=== PATIENT | female | born 1940 | race Caucasian/White ===

== ENCOUNTER 2023-09-02 22:25 | Inpatient (IN) | payer MEDICARE, OTHER, SELFPAY ==
[2023-09-02] VITALS (10 sets, daily range): BP systolic 124–148; BP diastolic 75–91; BMI 18.9
[2023-09-02] MEDS: NSS 500 IV (19:55)
[2023-09-02 20:18] LABS: ALT (SGPT) 21 U/L (0-35); AST (SGOT) 35 U/L (14-36); Albumin 3.7 g/dl (3.5-5.0); Alkaline Phosphatase 57 U/L (38-126); Blood Urea Nitrogen 5 mg/dl (7-17); Calcium 7.7 mg/dl (8.4-10.2); Carbon Dioxide 22 mmol/L (22-30); Chloride 75 mmol/L (98-107); Glucose 95 mg/dl (70-99); Potassium 2.4 mmol/L (3.5-5.1); Sodium 106 mmol/L (135-145); Total Protein 6.2 g/dl (6.3-8.2); eGFR > 60.00
[2023-09-02 20:41] LABS: Magnesium 1.7 mg/dl (1.6-2.3); Osmolality Serum 220 mOsm/kg (275-300)
[2023-09-02] MEDS: KCL ELIXIR 40 MEQ PO (20:49)
[2023-09-02] MEDS: MAGNESIUM SULFATE 50 IV (20:49)
[2023-09-02 20:53] LABS: % Basophils 0.1 % (0-2); % Eosinophils 0.1 % (0-6); % Immature Granulocytes 0.7 % (0-0.5); % Lymphocytes 4.3 % (20.5-51.1); % Monocytes 10.1 % (1.7-9.3); % Neutrophils 84.7 % (42.2-75.2); Absolute Immature Granulocytes 0.1 10^3/uL (0-0.05); Absolute Lymphocytes 0.4 10^3/uL (1.2-3.4); Absolute Monocytes 0.9 10^3/uL (0.1-0.6); Absolute Neutrophils 7.5 10^3/uL (1.4-6.5); Hemoglobin 12.5 g/dL (12.0-16.0); Mean Corp Hgb Conc. 36.8 g/dL (33.0-37.0); Mean Corpuscular Hgb 31.7 pg (27.0-31.0); Mean Corpuscular Volume 86.3 fL (81.0-99.0); Mean Platelet Volume 10.5 fL (7.4-10.4); Nucleated Red Blood Cells % 0 %; Platelet Count 376 10^3/uL (130-400); Red Blood Cell Count 3.94 10^6/uL (4.20-5.40); Red Cell Dist. Width 11.9 % (11.5-14.5); White Blood Cell Count 8.8 10^3/uL (4.8-10.8)
--- NOTE | 2023-09-02 21:06 | ED.GENMED ---
History of Present Illness
General
Chief Complaint: Weakness
Time Seen by Provider: 09/02/23 19:12
Travel History
Have you had any contact with someone who has COVID-19?: Unable to Answer
Do you have any symptoms of coronavirus? Fever > 100 degrees, chills, cough, shortness of breath, sore throat, loss of taste or smell, muscle aches, or headache?: Unable to Answer
History of Present Illness
History of Present Illness:
82-year-old female with history of hypertension and hyperlipidemia presents to the emergency department for evaluation of vomiting and diarrhea over the past 2 to 3 days associated with generalized weakness. Spouse and daughter noted that the
patient seemed confused and very weak today. She has been tolerating fluids throughout the majority of the day. According to she does drink in excess of 64 ounces of water each day. On arrival the patient is alert, follows commands, is
disoriented to year which is abnormal according to her family. She reports feeling fatigued. Daughter also notes that the patient's hydrochlorothiazide had previously been administered 2-3 times weekly but over the past week has been taken daily.
Past History
Past History
ED Past Medical History: Other (chronic back pain fractures)
ED Past Surgical History: Other (back surgery)
PSI?: Yes
Social History
Tobacco: Former smoker
Drug: None
Personal:
Living: with family
Employment: Retired
Review of Systems
Review of Systems
Allergies reviewed?: Yes
All Other Systems: ROS reviewed and negative except as documented in HPI and ROS
Phy Exam
Physical Exam
Physical Exam:
GEN: Thin and frail, cachectic, no acute distress
Eyes: PERRLA, EOMs intact, no scleral icterus
HENT: NCAT, oral mucosa dry
Lungs: CTAB, no wheezes, rales, rhonchi, normal chest wall excursion
Cardiac: RRR, no M/R/G, no peripheral edema. Radial pulses 2+ bilat
Abdomen: S, NT, ND, NABS, no masses or hepatosplenomegaly
Neuro: Alert, oriented to self, place, confused to year but oriented to time otherwise, moves all extremities freely but globally weak
MSK: No gross deformity or ecchymosis.
Skin: No rashes, petechiae. Normal color, no pallor or jaundice.
Psych: Calm, cooperative, proper hygiene
Course
Orders/Labs/Results
Orders:
Orders
09/02/23 19:26
Electrocardiogram (*1) Urgent
Reason for Study: QTc Monitoring
EKG- Treatment ONCE
0.9% Sodium Chloride 500 ml [Nss] 500 ml IV BOLUS
09/02/23 19:48
Complete Blood Count/With Diff Urgent
Comprehensive Metabolic Panel Urgent
Magnesium Urgent
Comment: ADD ON
Serum Osmolality Urgent
Comment: ADD ON
TSH Reflex To Free T4 Urgent
Comment: ADD ON
09/02/23 20:19
Add On- LAB Urgent
Tests Added?: serum osmolality, magnesium
09/02/23 20:35
Magnesium Sulfate 2 Gram/50 ml [Magnesium Sulfate] 2 gram in 50 ml IV NOW
Potassium Chloride 10% Elixir [KCl Elixir] 40 meq PO NOW STA
09/02/23 20:56
Potassium Chloride [KCl] 20 meq 0.9% Sodium Chloride 150 ml [Nss] 150 ml IV NOW
09/02/23 21:48
Add On- LAB Urgent
Tests Added?: TSH w/Reflex
Osmolality, Random Urine Urgent
Date Specimen was Collected: 09/02/23
Time Specimen was Collected: 21:47
Urinalysis Reflex To Culture Urgent
Date Specimen was Collected: 09/02/23
Time Specimen was Collected: 21:47
Urine Microscopic Reflex Cult Urgent
Urine Sodium Urgent
Date Specimen was Collected: 09/02/23
Time Specimen was Collected: 21:47
Urine Culture Urgent
DEYSI Source: U
Specimen Description:
Date Specimen was Collected: 09/02/23
Time Specimen was Collected: 21:47
09/02/23 21:59
CR Chest Portable - 1 View Urgent
Comment:
Reason For Exam: hyponatremia, cough
Reason Study Needs to be Portable: Unable to Transport
09/02/23 22:08
Admit/Transfer Patient As Directed
Co-Sign Provider:
Level of Care: Inpatient admission
Assign to:: ICU
Physician / Group: Higinio
Diagnosis: Hyponatremia
Reason for Hospitalization: Hyponatremia
Expected length of stay greater than two midnights?: Yes
ELOS- Estimated Length of Stay in days: 4
I certify the patient meets the requirements for IP care: Yes
09/02/23 22:09
Code Status As Directed
Resuscitation Status: Do not resuscitate
Reached after discussion with pt or family/Healthcare POA: Yes
DNR Bracelet Application ONCE
09/02/23 22:18
CT Head W/o Iv Contrast Urgent
Comment:
Reason For Exam: confusion
09/03/23 04:00
BMP [Basic Metabolic Panel] Routine
Abnormal Lab Results
09/02/23 09/02/23
19:48 21:48
RBC 3.94 L 10^6/uL
(4.20-5.40)
Hct 34.0 L %
(37.0-47.0)
MCH 31.7 H pg
(27.0-31.0)
MPV 10.5 H fL
(7.4-10.4)
Abs Immat Gran (auto) 0.1 H 10^3/uL
(0-0.05)
Absolute Neuts (auto) 7.5 H 10^3/uL
(1.4-6.5)
Absolute Lymphs (auto) 0.4 L 10^3/uL
(1.2-3.4)
Absolute Monos (auto) 0.9 H 10^3/uL
(0.1-0.6)
Immature Gran % 0.7 H %
(0-0.5)
Neutrophils % 84.7 H %
(42.2-75.2)
Lymphocytes % 4.3 L %
(20.5-51.1)
Monocytes % 10.1 H %
(1.7-9.3)
Sodium 106 L* mmol/L
(135-145)
Potassium 2.4 L* mmol/L
(3.5-5.1)
Chloride 75 L mmol/L
(98-107)
BUN 5 L mg/dl
(7-17)
Creatinine 0.4 L mg/dL
(0.6-1.0)
Serum Osmolality 220 L mOsm/kg
(275-300)
Calcium 7.7 L mg/dl
(8.4-10.2)
Total Protein 6.2 L g/dl
(6.3-8.2)
Urine Ketones 1+ A
(Negative)
Ur Occult Blood Reflex Trace A
(Negative)
Leukocyte Esterase Rfl 1+ A
(Negative)
Urine Bacteria (Reflex) Few A
(Negative)
Urine Sodium 128 H mmol/L
(30-90)
09/02/23 19:48
09/02/23 19:48
Vital Signs
Initial and Last Documented VS:
Initial Vital Signs
Temp Pulse Resp BP Pulse Ox
97.8 F 89 22 140/76 96
09/02/23 19:23 09/02/23 19:23 09/02/23 19:23 09/02/23 19:23 09/02/23 19:23
Last Documented Vital Signs
Temp Pulse Resp BP Pulse Ox
97.8 F 91 23 136/86 93
09/02/23 19:23 09/02/23 23:30 09/02/23 23:30 09/02/23 23:30 09/02/23 23:30
MDM/Problems Addressed
MDM/Problems Addressed:
Patient's hyponatremia is likely multifactorial in the setting of recent increased diuretic use, SSRI use, questionable excess free water intake/polydipsia, and recent hypovolemia in the setting of diarrhea and vomiting. She has no focal neurologic
deficits but certainly does appear confused and fatigued. Her hypokalemia also supports the hypervolemic state. She started promptly on electrolyte repletion, after discussion with nephrology it was determined that we would initiate hypertonic
saline for this patient, will admit to the intensive care unit hospitalist service for further management
*Critical Care Note
Total Time (30-74mins, 75-104mins- exclusive of procedures): 40 minutes
comment:
Critical care time: 40-minute
Critical care time was exclusive of: Separately billable procedures, treating other patients, and teaching time
Critical care was necessary to treat or prevent imminent or life-threatening deterioration of the following conditions: Hyponatremia/hypokalemia
Critical care time spent personally by me on the following activities:
[x] Review of old charts
[x] Obtaining history from patient or surrogate
[x] Ordering and review of the laboratory studies
[ ] Ordering and review of radiographic studies
[x] Ordering and performing treatments and interventions
[x] Patient patient's response to treatment
[x] Development of treatment plan with patient or surrogate
ED Attending Note
-
Portions of this chart may have been created with voice recognition software.� Occasional wrong word or��sound alike� substitutions may have occurred due to the inherent limitations of voice recognition software.
Discharge Plan
Departure
Patient Disposition: Admit
Date of Disposition: 09/02/23
Time of Disposition: 21:10
Admit to: IMU
Presentation/result/management discussed w/ accepting MD/DO: Hospitalist
Discharge Problem:
Acute hyponatremia, Acute hypokalemia
Interventions
Interventions:
*Risk Screen - Suicide Last Done: 09/02/23 19:23
*General Assessment Last Done: 09/02/23 19:23
*Neglect/Abuse Screening Last Done: 09/02/23 19:23
ED- Fall Risk Assessment Last Done: 09/02/23 19:50
*ED COVID-19 Vaccine History Last Done: 09/02/23 19:50
ED- Cardiac Assessment Last Done: 09/02/23 19:50
ED- Neurological Assessment Last Done: 09/02/23 19:50
ED- Pulmonary Assessment Last Done: 09/02/23 19:50
[2023-09-02 21:55] LABS: Osmolality Urine 392 mOsm/kg (300-900); Urine Albumin Negative (Neg - Trace); Urine Bilirubin Negative (Negative); Urine Character Clear (Clear); Urine Color Yellow; Urine Glucose Negative (Negative); Urine Ketone 1+ (Negative); Urine Leukocyte 1+ (Negative); Urine Nitrite Negative (Negative); Urine Occult Blood Trace (Negative); Urine Urobilinogen Negative (Neg - 1+)
--- NOTE | 2023-09-02 22:02 | HPS.HSE ---
Family Physician
-
Family Physician: Agustina Landis
Chief Complaint
-
Weakness and Confusion
History of Present Illness
Patient is an 82 y/o female past medical history of hypertension, anxiety and depression who presents with vomiting, weakness and increased confusion. Additional history is obtained from patient's daughter and at the bedside. Patient
started to feel ill over the weekend. Family report multiple episodes of vomiting, and some diarrhea. Patient is usually independent but today patient was so weak family had to carry her back to bed. Labs in the ED revealed significant
hyponatremia. Family notes patient drinks a lot of fluid over the coarse of the day, sometimes in excess of 64oz per day. Family also notes she previous had been taking her HCTZ twice a week, but recently bumped it up to daily due to increased
lower ext edema which has not resolved.
Medical History
Past Medical History
Past Medical History: Reports Other
Additional Past Medical History:
Essential Hypertension
Hyperlipidemia
Chronic Back Pain
Osteoporosis
GERD
Anxiety/Depression
Past Surgical History: Reports Other
Additional Past Surgical History:
Left Humerus Fracture Repair
Right Foot Fracture Repair
Bladder Sling
Social History
Tobacco: Non-smoker
Alcohol: None
Personal:
Living: With Family
Family History
Family History: Not pertinent
Allergies / Home Medications
Allergies reflects when Allergies were last updated in [facility].
Home Medications with original date entered in [facility]
Allergy/Medication List:
Allergies
Allergy/AdvReac Type Severity Reaction Status Date / Time
azithromycin [Azithromycin] Allergy Rash Verified 02/10/20 22:23
mirtazapine [From Remeron] Allergy restless Verified 02/10/20 22:23
leg
syndrome,
weight gain
Penicillins Allergy Hives Verified 02/10/20 22:23
Sulfa (Sulfonamide Allergy Rash Verified 02/10/20 22:23
Antibiotics)
Home Medications
amlodipine 5 mg tablet 5 mg PO DAILY 02/10/20
atorvastatin 20 mg tablet 20 mg PO DAILY 02/10/20
diazepam 5 mg tablet 5 mg PO Q8H 02/10/20
hydrocodone 5 mg-acetaminophen 325 mg tablet 1 tab PO Q8HPRN PRN mild pain 02/10/20
trazodone 100 mg tablet 100 mg PO HS 02/10/20
venlafaxine 150 mg capsule,extended release 24 hr (Effexor XR) 150 mg PO DAILY 02/10/20
acetaminophen 325 mg tablet 325 mg PO DAILY 09/02/23
cholecalciferol (vitamin D3) 1,250 mcg (50,000 unit) capsule 1,250 mcg PO USEASDIRECTD 09/02/23
hydrochlorothiazide 25 mg tablet 25 mg PO DAILY 09/02/23
lactulose 10 gram/15 mL oral solution 15 ml PO DAILY 09/02/23
mometasone 0.1 % topical cream 1 applic topical DAILY 09/02/23
pantoprazole 40 mg tablet,delayed release 40 mg PO DAILY 09/02/23
senna leaf extract 8.7 mg chewable tablet (Senokot) 8.7 mg PO DAILY 09/02/23
Review of Systems
-
Unable to obtain full review of systems at this time due to: Acuity
Constitutional: Denies Fever or Chills
Respiratory: Reports Cough
Cardiac: Denies Chest Pain or Palpitations
Abdomen/GI: Reports Vomiting and Diarrhea
Physical Exam
Vital Signs
Vital Signs
Temp Pulse Resp BP Pulse Ox
97.8 F 88 20 125/80 95
09/02/23 19:23 09/02/23 20:00 09/02/23 20:00 09/02/23 20:00 09/02/23 20:00
Physical Exam
General: Comfortable, Conversant, Appears Chronically Ill and Cachectic
HEENT: NormoCephalic, Anicteric and Atraumatic
Respiratory: Non Labored Respirations and Other (Coarse breath sounds throughout)
Cardiac: S1/S2 and Regular Rhythm
GI: Soft and Non Tender
Rectal: Deferred by Provider
Musculoskeletal: No Clubbing, No Cyanosis and No Edema
Skin: Warm and Dry
Neuro: Awake, Alert and Oriented (Oriented to self)
Psych: Calm
Laboratory Results
-
09/02/23 19:48
09/02/23 19:48
Laboratory Results
Total Bilirubin 1.0 mg/dl (0.2-1.3) 09/02/23 19:48
AST 35 U/L (14-36) 09/02/23 19:48
ALT 21 U/L (0-35) 09/02/23 19:48
Alkaline Phosphatase 57 U/L (38-126) 09/02/23 19:48
Data Reviewed
-
Lab Data: Labs Reviewed by me
Impression/Plan
-
Severe Symptomatic Hyponatremia
-Admit to ICU
-Consult Nephrology
-Patient received 3% NaCl 50mL bolus in ED
-Recheck sodium 4hr post bolus - If Na remains less than 110 start 3% Na infusion
-Monitor sodium level q4h
-Continue fluid restriction
Hypokalemia
-Replace potassium PO and IV
-Recheck potassium tonight and in AM
Essential Hypertension
-Hold HCTZ due to hyponatremia
-Hold amlodipine due to complaints of lower ext edema
-Monitor blood pressure
Anxiety/Depression
-Hold trazodone and Effexor as causes of hyponatremia
-Hold diazepam due to confusion
GERD
-Continue Protonix
Severe Protein Calorie Malnutrition
-Consult Dietary
DVT proph: Lovenox
Code Status: DNR confirmed with family at bedside at time of admission
[2023-09-02 22:06] LABS: Urine Sodium 128 mmol/L (30-90)
[2023-09-02 22:13] LABS: Urine Bacteria Few (Negative); Urine Red Blood Cell 0-2 /HPF (0-2); Urine Squamous Cell >30 /LPF (Few)
[2023-09-02 22:53] LABS: TSH Reflex To Free T4 0.77 uIU/ml (0.47-4.68)
--- NOTE | 2023-09-02 23:12 | W.PN.UPDATE ---
Update Note
Progress Note Update
Patient seen and examined independently. Agree with findings and plan as set forth in today's H&P by Mary Black PA-C.
Patient is an 82y F with PMH significant for hypertension and depression who presents to ED for evaluation of weakness and confusion. History obtained from patient and her family at the bedside. Patient is normally oriented and very active.
Over the past few days especially she has been weak, fatigued and increasingly confused. They stated that patient was not following commands or answering questions earlier today. They attempted to assist her to the bathroom and family states that
she went 'stiff as a board'. No prior h/o similar symptoms. Patient does have a history of chronic but very mild hyponatremia. She recently increased her HCTZ dosing from twice weekly to once daily. She apparently takes this for LE swelling.
Ass:
Severe Symptomatic Hyponatremia
Hypokalemia
Benign Hypertension
Severe Protein-Calorie Malnutrition
Anxiety / Depression
GERD
Abnormal Lung Sounds
Plan:
Admit to ICU for further evaluation and treatment.
Patient with Na = 106 and abnormally high serum sodium.
On multiple medications which can contribute to hyponatremia - including recently increased HCTZ.
Hold all potential culprit medications for now.
3% saline bolus now with repeat labs at 1:30 AM.
+/- 3% infusion thereafter if necessary.
Nephrology input appreciated / formal consult placed.
Scrub Tech evaluation.
Follow for clinical improvement coincident with gradual Na correction.
Patient will require further evaluation including CXR, CT head, TFTs, cortisol, etc.
Given severe cachexia and hyponatremia - would be concerned about possible underlying malignancy.
Once Na level is improved, would consider further evaluation, CT C/A/P, etc.
[2023-09-02] MEDS: KCL 160 MEQ IV (23:46)
--- NOTE | 2023-09-02 23:54 | EDRN ---
Pt contact - family: medical decision maker:
daughter Tisha [phone]
can contact at any time as needed.
[2023-09-03] VITALS (23 sets, daily range): BP systolic 123–153; BP diastolic 69–99; BMI 15.9
[2023-09-03 00:13] LABS: COVID-19 Antigen Negative (Negative)
--- NOTE | 2023-09-03 00:44 | PTCARENOTE ---
Patient received from ED, AAOX1-2, forgetful to time, pleasant. BYERS. NSR on monitor, afebrile, blood pressure as documented. Palpable oulses throughout, no edema noted. Lungs diminished, pulse ox 98% on room air. Abdomen soft positive bowel
sounds. Pure wick applied. Skin intact. #18 g in right forearm with K rider infusing. CHG bath given.
[2023-09-03] MEDS: SODIUM CHLORIDE 3% 50 ML IV (01:08)
[2023-09-03 04:25] LABS: INR 0.99; PT 13.1 Sec (11.4-14.6)
[2023-09-03 04:27] LABS: APTT 42.2 Sec (23.4-35.0)
[2023-09-03 04:31] LABS: Hematocrit 33.2 % (37.0-47.0); Hemoglobin 12.3 g/dL (12.0-16.0); Mean Corpuscular Hgb 31.5 pg (27.0-31.0); Mean Corpuscular Volume 84.9 fL (81.0-99.0); Mean Platelet Volume 9.6 fL (7.4-10.4); Platelet Count 373 10^3/uL (130-400); Red Blood Cell Count 3.91 10^6/uL (4.20-5.40); Red Cell Dist. Width 11.8 % (11.5-14.5); White Blood Cell Count 7.5 10^3/uL (4.8-10.8)
[2023-09-03 04:52] LABS: Blood Urea Nitrogen 4 mg/dl (7-17); Calcium 7.6 mg/dl (8.4-10.2); Carbon Dioxide 17 mmol/L (22-30); Chloride 88 mmol/L (98-107); Estimated Creatinine Clearance 52 ml/min; Glucose 84 mg/dl (70-99); Magnesium 2.4 mg/dl (1.6-2.3); Potassium 3.3 mmol/L (3.5-5.1); Sodium 112 mmol/L (135-145); eGFR > 60.00
[2023-09-03 05:10] LABS: Cortisol, Random 23.4 ug/dl
--- NOTE | 2023-09-03 05:56 | PTCARENOTE ---
labs noted, orders received
[2023-09-03] MEDS: KCL ELIXIR 40 MEQ PO (06:28)
[2023-09-03] MEDS: PROTONIX 40 MG PO (07:57)
--- NOTE | 2023-09-03 09:00 | PTCARENOTE ---
Rec'd pt at 0745 awake resting in bed . Overall is more awake and for the most part oriented. Does get sl forgetful - pt has her nails done and stated it was for her granddaughters weddding but couldn't remember if the wedding had occured or not (it
hadn't its on Friday), however knew it was August and that she was in [place]. Denies dizziness or headache. Denies pain. Skin is pale pink wm and dry. Respirs are shallow but non-labored on RA with sats of 98%. BS are decreased at the bases. Occasional
moist non=prod cough. Monitor SR. + pulses.No edema. Denies chest pain. VS as documented. Abd is soft with hypoactive BS. Denies nausea. Purewick on place - encouraged pt to try to void. Capped int intact R FA site wnl. Repositioned. Mouth care
given. Partial CHG bath done. Awaiting breakfast. Remade aware of fluid restriction of 1200 mls as pt states she is a big water drinker at home. Call cisneros in reach. Plan of care reviewed with pt.
--- NOTE | 2023-09-03 09:24 | W.CON.NEPH ---
Consultation
-
Date/Time Consultation Requested: 09/02/232139
Date/Time Consultation Performed: 09/03/23929
Requesting Provider: Ricki Carter
Performing Provider: Ayde Schuler
Reason for Consultation: hypoantremia
Medical History
-
Chief Complaint: Weakness and cofusion
History of Present Illness:
82y F with PMH significant for hypertension on Amlodipine, and depression on effexor, diazepam, on PPI for GERD who presents to ED for evaluation of weakness and confusion on 09/01. Pt is poor historian and most of the history from staff and chart.
Patient is normally oriented and very active. Over the past few days especially she has been weak, fatigued and increasingly confused and not following commands or answering questions. Family attempted to assist her to the bathroom and family
states that she went 'stiff as a board'. Patient does have a history of chronic mild hyponatremia 130 in 2019. She recently increased her HCTZ dosing from twice weekly to once daily for LE swelling. On arrival to ER sodium was 106, s/p 50cc bolus
of hypertonic fluids and sodium recheck this am was 112. Pt reports feeling well but not back to baseline. Offers no cp or sob or abd pain. No n/v/d. She reports losing wt lately. Denies any dysuria.Pt does admits of drinking lot of fluids.
Past Medical History
Essential Hypertension
Hyperlipidemia
Chronic Back Pain
Osteoporosis
GERD
Anxiety/Depression
Past Surgical History: Other (Left Humerus Fracture Repair Right Foot Fracture Repair Bladder Sling)
Social History
Tobacco: Non-Smoker
Alcohol: None
Personal:
Living: With Family
Family History
Family History: Not Pertinent
Allergies / Home Medications
Allergy/AdvReac Type Severity Reaction Status Date / Time
azithromycin [Azithromycin] Allergy Rash Verified 02/10/20 22:23
mirtazapine [From Remeron] Allergy restless Verified 02/10/20 22:23
leg
syndrome,
weight gain
Penicillins Allergy Hives Verified 02/10/20 22:23
Sulfa (Sulfonamide Allergy Rash Verified 02/10/20 22:23
Antibiotics)
�Medication �Instructions �Recorded �Confirmed �Type
amlodipine 5 mg tablet 5 mg PO DAILY 02/10/20 09/02/23 History
atorvastatin 20 mg tablet 20 mg PO DAILY 02/10/20 09/02/23 History
diazepam 5 mg tablet 5 mg PO Q8H 02/10/20 09/02/23 History
hydrocodone 5 mg-acetaminophen 325 1 tab PO Q8HPRN PRN mild pain 02/10/20 09/02/23 History
mg tablet
trazodone 100 mg tablet 100 mg PO HS 02/10/20 09/02/23 History
venlafaxine 150 mg 150 mg PO DAILY 02/10/20 09/02/23 History
capsule,extended release 24 hr
(Effexor XR)
acetaminophen 325 mg tablet 325 mg PO DAILY 09/02/23 09/02/23 History
cholecalciferol (vitamin D3) 1,250 1,250 mcg PO USEASDIRECTD 09/02/23 09/02/23 History
mcg (50,000 unit) capsule
hydrochlorothiazide 25 mg tablet 25 mg PO DAILY 09/02/23 09/02/23 History
lactulose 10 gram/15 mL oral 15 ml PO DAILY 09/02/23 09/02/23 History
solution
mometasone 0.1 % topical cream 1 applic topical DAILY 09/02/23 09/02/23 History
pantoprazole 40 mg tablet,delayed 40 mg PO DAILY 09/02/23 09/02/23 History
release
senna leaf extract 8.7 mg chewable 8.7 mg PO DAILY 09/02/23 09/02/23 History
tablet (Senokot)
Review of Systems
-
all complete 12 point ROS have been inquired and found negative other than state din HPI
Physical Exam
Vital Signs
Vital Signs
Temp Pulse Resp BP Pulse Ox
98.9 F 86 24 139/76 95
09/03/23 07:45 09/03/23 09:00 09/03/23 09:00 09/03/23 09:00 09/03/23 09:00
Lab Results
WBC 7.5 10^3/uL (4.8-10.8) 09/03/23 03:59
RBC 3.91 10^6/uL (4.20-5.40) L 09/03/23 03:59
Hgb 12.3 g/dL (12.0-16.0) 09/03/23 03:59
Hct 33.2 % (37.0-47.0) L 09/03/23 03:59
Plt Count 373 10^3/uL (130-400) 09/03/23 03:59
Sodium 112 mmol/L (135-145) L* 09/03/23 03:59
Sodium Cancelled 09/03/23 03:59
Potassium 3.3 mmol/L (3.5-5.1) L D 09/03/23 03:59
Potassium Cancelled 09/03/23 03:59
Chloride 88 mmol/L (98-107) L 09/03/23 03:59
Chloride Cancelled 09/03/23 03:59
Carbon Dioxide 17 mmol/L (22-30) L 09/03/23 03:59
Carbon Dioxide Cancelled 09/03/23 03:59
BUN 4 mg/dl (7-17) L 09/03/23 03:59
BUN Cancelled 09/03/23 03:59
Creatinine 0.3 mg/dL (0.6-1.0) L 09/03/23 03:59
Creatinine Cancelled 09/03/23 03:59
eGFR > 60.00 09/03/23 03:59
eGFR Cancelled 09/03/23 03:59
Glucose 84 mg/dl (70-99) 04/10/24 03:59
Glucose Cancelled 09/03/23 03:59
Calcium 7.6 mg/dl (8.4-10.2) L 09/03/23 03:59
Calcium Cancelled 09/03/23 03:59
Albumin 3.7 g/dl (3.5-5.0) 09/02/23 19:48
U osmo 392, U na [address] head:
IMPRESSION:
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
There is moderate diffuse cortical atrophy with moderate nonspecific white matter changes as described above.
CXR:
IMPRESSION:
No acute disease of the chest.
Mild cardiomegaly. Stable.
Findings suggesting a moderate hiatal hernia. Stable
Physical Exam
General: Awake, Alert, Oriented, No Distress and Nontoxic
HEENT: EOMI and Anicteric
Respiratory: Clear
Cardiac: S1/S2, Regular Rate/Rhythm and No Edema
Abdomen: Soft, Nontender and Nondistended
Musculoskeletal: No Cyanosis and No Edema
Skin: No Rash
Neuro: Nonfocal/Grossly Intact
Psych: Mood/afflect pleasant, Appropriate and Other (slow to respons and confusion+)
Assessment/Plan
-
IMP:
Severe Symptomatic Hyponatremia
Hypokalemia
No gap met acidosis
Essential Hypertension
Anxiety/Depression
GERD/HH
Severe Protein Calorie Malnutrition
Plan:
A/w gen weakness and confusion sodium noted 106
severe [id number] ADH state with U osmo 392, high U na post 3%
worsened with HCTZ use, and possible low solute with high free water intake
note she is on SNRI and trazodone -currently on hold
goal of correction 6-8meq/day, high risk of CPM
current sodium at 113-start gentle hypotonic fluid to avoid over correction
check Q4hr sodiums, goal of sodium tonight is 112. by morning 116.
TSH and cortisol is normal
BP stable with holding meds
monitor UOP, recheck U osmo today
maintain FR 40ounces/day
replace k
encourage solute intake
mild met acidosis-monitor, check bladder scan
d/w nursing and ICU
Data Reviewed
-
Radiology: Report Reviewed by me
Labs: Labs Reviewed by me and Discussed with Nurse
--- NOTE | 2023-09-03 10:30 | PTCARENOTE ---
Fair to poor appetite for breakfast. No difficulty noted with swallowing although pt states at times she has issues with it at home. Admitted to about at 10 lb weight loss recently as she states she does not have much of an appetite. Pt voided via
purewick but was incont of a saturated amt of urine around the purewick. Bladder scanned for residual of 276 mls. Carolee care given and pt then assisted oob to the BSC- did not need to void futher. Then to the recliner chair. Gait is weak but easily
able to bear wt and did not c/o dizzness. Currently oob in the chair. Call cisneros in reach. Labs sent as ordered
--- NOTE | 2023-09-03 10:38 | CON.INTV ---
Documented by User: Long Snyder MD, Resident 09/03/23 12:10
Consultation
Consultation Request
Date/Time Consultation Requested: 09/03/2023
Date/Time Consultation Performed: 09/03/2023
Reason for Consultation: Confusion and weakness
Medical History
-
Chief Complaint: Confusion and weakness
History of Present Illness:
History obtained from patient and clinical notes. Patient is a 82-year-old female with past medical history of hypertension who presented to the ED on 09/03/2023 with with nausea, vomiting, diarrhea, weakness, and confusion for the past 2 to 3 days.
Family reports that patient's HCTZ was increased from 2-3 times a week to daily due to concerns for bilateral lower extremity edema. Family also noted that patient drinks in excess of 64 ounces of water every day. On presentation, patient was found
to be oriented to only self with sodium level of 106, potassium level of 2.4 and urine sodium of 128. Her head CT and chest x-ray were both unremarkable. She was started on senna and her HCTZ, trazodone, Effexor, diazepam, and amlodipine were held.
Patient was treated with 50 mL 3% sodium chloride bolus. Her electrolytes were repleted with magnesium sulfate and potassium chloride with one-time 150 mL of normal saline and was admitted to the ICU for further evaluation.
Overnight, her sodium level improved to 112 and potassium improved to 3.3. Today, patient is currently oriented x 3 and tolerating oral feeding. her electrolytes are improving with sodium level of 113 and potassium is 3.9.
PMH:Essential Hypertension, Hyperlipidemia, Chronic Back Pain, Osteoporosis, GERD, Anxiety/Depression.
Past Medical History
Past Medical History: GERD, HTN and Hypercholesterolemia
Past Surgical History: Gynecological (Bladder sling) and Orthopedic (Right foot fracture repair and left humeral fracture repair)
Social History
Tobacco: Non-smoker
Alcohol: None
Drug: None
Personal:
Living: With Family
Family History
Family History: Reviewed & Not Pertinent
Allergies / Home Medications
Allergies
Allergy/AdvReac Type Severity Reaction Status Date / Time
azithromycin [Azithromycin] Allergy Rash Verified 02/10/20 22:23
mirtazapine [From Remeron] Allergy restless Verified 02/10/20 22:23
leg
syndrome,
weight gain
Penicillins Allergy Hives Verified 02/10/20 22:23
Sulfa (Sulfonamide Allergy Rash Verified 02/10/20 22:23
Antibiotics)
Home Medications
�Medication �Instructions �Recorded �Confirmed �Last Taken �Type
amlodipine 5 mg tablet 5 mg PO DAILY 02/10/20 09/02/23 Unknown History
atorvastatin 20 mg tablet 20 mg PO DAILY 02/10/20 09/02/23 Unknown History
diazepam 5 mg tablet 5 mg PO Q8H 02/10/20 09/02/23 Unknown History
hydrocodone 5 mg-acetaminophen 325 1 tab PO Q8HPRN PRN mild pain 02/10/20 09/02/23 Unknown History
mg tablet
trazodone 100 mg tablet 100 mg PO HS 02/10/20 09/02/23 Unknown History
venlafaxine 150 mg 150 mg PO DAILY 02/10/20 09/02/23 Unknown History
capsule,extended release 24 hr
(Effexor XR)
acetaminophen 325 mg tablet 325 mg PO DAILY 09/02/23 09/02/23 Unknown History
cholecalciferol (vitamin D3) 1,250 1,250 mcg PO USEASDIRECTD 09/02/23 09/02/23 Unknown History
mcg (50,000 unit) capsule
hydrochlorothiazide 25 mg tablet 25 mg PO DAILY 09/02/23 09/02/23 Unknown History
lactulose 10 gram/15 mL oral 15 ml PO DAILY 09/02/23 09/02/23 Unknown History
solution
mometasone 0.1 % topical cream 1 applic topical DAILY 09/02/23 09/02/23 Unknown History
pantoprazole 40 mg tablet,delayed 40 mg PO DAILY 09/02/23 09/02/23 Unknown History
release
senna leaf extract 8.7 mg chewable 8.7 mg PO DAILY 09/02/23 09/02/23 Unknown History
tablet (Senokot)
Review of Systems
-
History Source: Patient and Transfer Record
All other systems: Negative unless noted
Constitutional: Other (Appears cachectic, denies fever and chills.)
EENT: No Symptoms
Respiratory: No Symptoms and Other (Denies difficulty breathing.)
Cardiac: No Symptoms and Other (Denies chest pain, shortness of breath, and palpitations)
Abdomen/GI: No Symptoms and Other (Currently denies nausea, vomiting, and diarrhea. Denies abdominal pain.)
: No Symptoms
Musculoskeletal: No Symptoms
Skin: No Symptoms and Other (No rash)
Neuro: No Symptoms, Weakness and Other (Oriented x 3, endorses some weakness but denies headache, dizziness, and numbness.)
Endocrine: Polydidsia
Hematologic/Lymphatic: No Symptoms
Vitals / Labs / Diagnostic Testing
Vital Signs
Temp Pulse Resp BP Pulse Ox
98.9 F 86 24 139/76 95
09/03/23 07:45 09/03/23 09:00 09/03/23 09:00 09/03/23 09:00 09/03/23 09:00
Lab Data
09/03/23 03:59
Laboratory Results
09/03/23
03:59
PT 13.1
INR 0.99
APTT 42.2 H
Diagnostic Testing:
Physical Exam
-
HEENT: Normocephalic and Anicteric
Cardiovascular: S1/S2
Respiratory: Clear
GI: Soft, Non Distended, Non Tender and Normal Bowel Sounds
Neurology: Awake, Alert and AO x 3
Skin: Warm, Dry and Good Color
General: Comfortable and Poor Appetite
Assessment
-
Patient is a 82-year-old female with past medical history of hypertension who presented to the ED with nausea, vomiting, diarrhea, weakness, and confusion for the past 2 to 3 days. Patient's HCTZ was recently increased from 2-3 times weekly dose to
a daily dose. On presentation patient was hypokalemic and hyponatremic. Potassium was repleted and patient received 50 mL 3% sodium chloride bolus and was admitted to ICU for further evaluations.
ASSESSMENT:
Presentation with weakness and confusion.
Severe hyponatremia.
Hypokalemia.
CONDITIONS PRIOR TO ADMISSION:
Essential Hypertension
Hyperlipidemia
Chronic Back Pain
Osteoporosis
GERD
Anxiety/Depression
Impression/Plan:
Presentation with weakness and confusion.
-Weakness has improved and patient is currently oriented x 3.
-Symptoms most likely due to electrolyte abnormalities given her acute vomiting and diarrhea and recent increase in hydrochlorothiazide dose. This may also be compounded with her history of excess free water intake.
-Continue electrolyte repletion and monitoring serum sodium level with improved potassium level.
-Continue free water restriction.
-Hold offending drugs�HCTZ, amlodipine, trazodone, Effexor.
-Restart home diazepam dose to prevent benzodiazepine withdrawal.
-Continue monitoring for clinical improvement for the next 24 hours with plans to transfer if she continues to be stable.
Severe hyponatremia/hypokalemia.
-Presentation with symptomatic hyponatremia and elevated urine sodium level most likely due to increased diuretic use and/polydipsia.
-Serums sodium level improving with 50 mL 3% NaCl boluses and normal saline IVF received in the ED.
-Continue free water restriction.
-BMP every 4 hours to monitor electrolytes.
-Replete with normal saline as needed.
Hypokalemia.
-Serum potassium level improved with KCl administration.
-Continue to monitor and replete potassium as needed.
-BMP every 4 hours to monitor electrolytes.
Essential Hypertension.
-Hold HCTZ for now due to hyponatremia.
-Hold amlodipine and reassess at discharge as this could potentially cause peripheral edema.
-Monitor blood pressure
Anxiety/Depression.
-Hold trazodone and Effexor due to symptomatic hyponatremia.
-Continue diazepam to prevent benzodiazepine withdrawal in a chronic user.
GERD.
-Continue Protonix.
Severe Protein Calorie Malnutrition
-Consult Dietary
DVT PPx: Lovenox
Code Status: DNR confirmed with family at bedside at time of admission

Documented by User: Jerome Sheldon MD 09/03/23 16:39
Assessment
-
Patient is a 82-year-old female with past medical history of hypertension who presented to the ED with nausea, vomiting, diarrhea, weakness, and confusion for the past 2 to 3 days. Patient's HCTZ was recently increased from 2-3 times weekly dose to
a daily dose. On presentation patient was hypokalemic and hyponatremic. Potassium was repleted and patient received 50 mL 3% sodium chloride bolus and was admitted to ICU for further evaluations.
ASSESSMENT:
Presentation with weakness and confusion.
Severe hyponatremia.
Hypokalemia.
CONDITIONS PRIOR TO ADMISSION:
Essential Hypertension
Hyperlipidemia
Chronic Back Pain
Osteoporosis
GERD
Anxiety/Depression
Impression/Plan:
Presentation with weakness and confusion.
-Weakness has improved and patient is currently oriented x 3.
-Symptoms most likely due to electrolyte abnormalities given her acute vomiting and diarrhea and recent increase in hydrochlorothiazide dose. This may also be compounded with her history of excess free water intake.
-Continue electrolyte repletion and monitoring serum sodium level with improved potassium level.
-Continue free water restriction.
-Hold offending drugs�HCTZ, amlodipine, trazodone, Effexor.
-Restart home diazepam dose to prevent benzodiazepine withdrawal.
-Continue monitoring for clinical improvement for the next 24 hours with plans to transfer if she continues to be stable.
Severe hyponatremia/hypokalemia.
-Presentation with symptomatic hyponatremia and elevated urine sodium level most likely due to increased diuretic use and/polydipsia.
-Serums sodium level improving with 50 mL 3% NaCl boluses and normal saline IVF received in the ED.
-Continue free water restriction.
-BMP every 4 hours to monitor electrolytes.
-Replete with normal saline as needed.
-Nephrology following
Hypokalemia.
-Serum potassium level improved with KCl administration.
-Continue to monitor and replete potassium as needed.
-BMP every 4 hours to monitor electrolytes.
Essential Hypertension.
-Hold HCTZ for now due to hyponatremia.
-Hold amlodipine and reassess at discharge as this could potentially cause peripheral edema.
-Monitor blood pressure
Anxiety/Depression.
-Hold trazodone and Effexor due to symptomatic hyponatremia.
-Continue diazepam to prevent benzodiazepine withdrawal in a chronic user.
GERD.
-Continue Protonix.
Severe Protein Calorie Malnutrition
-Consult Dietary
DVT PPx: Lovenox
Code Status: DNR confirmed with family at bedside at time of admission

The above was reviewed at length. Agree with above plan and recommendations. Patient seen and examined independently and with the resident. Patient is a pleasant 82-year-old female who recently saw her primary. She has lost about 20 pounds over
the last few months. She has been complaining of increasing lower extremity swelling, amlodipine was discontinued, hydrochlorothiazide increased. Patient admits to taking at least 64 ounces of water a day. Patient had episodes of emesis,
diarrhea, fatigue. Upon arrival to [facility], Sodium level 106, afebrile, pulse 89, breathing at 22, blood pressure 140/76, 96%. Patient was admitted to ICU for further management of hyponatremia. Was given 1 dose of 3% saline.
Presently patient is feeling much better. She is asking when she can go home. She has a wedding to attend the evening of 09/05/2023
Past medical history, social history, family history, review of system as below
History also obtained from at bedside
Physical exam salient features include cachexia, kyphoscoliosis
She has mild crackles at the base, no murmurs, no edema. Muscle strength is 5 out of 5
She has some mild right flank discomfort, no rebound or guarding
Data reviewed
A/P
At this time, sodium level appears to be 112
Likely combination of increasing hydrochlorothiazide dose and polydipsia
D5W to be started to slow rise of sodium levels.
Nephrology following
Will hold potential agents contributing to hyponatremia
Okay to use trazodone tonight per discussion with nephrology. Hold hydrochlorothiazide, effexor
Continue with every 4hr BMP
Significant weight loss is noted. Patient is lifelong non-smoker. Chest x-ray without acute findings.
Will defer further workup for weight loss to primary physician as outpatient
Dietary evaluation, optimize nutrition
Ensure supplements, light weights at home to develop muscle mass
Reviewed with critical care nursing, pharmacy, respiratory care
Reviewed with at bedside
TCCT 31 min
[2023-09-03 10:54] LABS: Blood Urea Nitrogen 5 mg/dl (7-17); Calcium 7.9 mg/dl (8.4-10.2); Carbon Dioxide 18 mmol/L (22-30); Chloride 86 mmol/L (98-107); Estimated Creatinine Clearance 44 ml/min; Glucose 103 mg/dl (70-99); Potassium 3.9 mmol/L (3.5-5.1); Sodium 113 mmol/L (135-145); eGFR > 60.00
[2023-09-03] MEDS: VALIUM 5 MG PO ×2 (10:58→20:37)
--- NOTE | 2023-09-03 11:20 | PTCARENOTE ---
Dr. Vallejo updated on labs. Pt remains sitting oob. in to see pt and updated. Pt is normally on Valium for anxiety - was asking for it stating she is normally an anxious person. Given her Valium as ordered.
[2023-09-03 12:00] LABS: Osmolality Urine 295 mOsm/kg (300-900)
--- NOTE | 2023-09-03 12:06 | W.PN.HOSP.TC ---
Today's Communication/Plan
-
d5w
trend bmp
restart valium
hold hctz and mood stabilizer for today
Assessment / Plan
Assessment / Plan
Severe Symptomatic Hyponatremia
-Patient received 3% NaCl 50mL bolus in ED
-Recheck sodium 4hr
-Monitor sodium level q4h
-Continue fluid restriction
-Goal sodium seems 112 per nephro.
-last Na at 113 and started on D5. Will defer to nephrology
Hypokalemia
-replete and monitor
Essential Hypertension
-Hold HCTZ due to hyponatremia
-Hold amlodipine due to complaints of lower ext edema
-Monitor blood pressure
Anxiety/Depression
-Hold trazodone and Effexor as causes of hyponatremia
-restart diazepam
GERD
-Continue Protonix
Severe Protein Calorie Malnutrition
-Consult Dietary likely subacute vs. chronic
DVT proph: Lovenox
Code Status: DNR confirmed with family at bedside at time of admission
Anticipated Discharge: > 48 hours
Subjective/Interval History
-
Date of Service: September 03, 2023
Drinks excessive amount of water at home
Also was started on HCTZ was dose was increased to daily
States of decreased oral p.o. dietary intake
States of losing weight
Objective Data
-
Labs:
Laboratory Results
09/03/23 09/03/23 09/03/23
03:59 03:59 03:59
WBC 7.5
Hgb 12.3
Hct 33.2 L
Plt Count 373
PT 13.1
INR 0.99
APTT 42.2 H
Sodium Cancelled 112 L*
Potassium Cancelled 3.3 L D
Chloride Cancelled
Carbon Dioxide
BUN
Creatinine
Glucose
Calcium
09/03/23 09/03/23 09/03/23
03:59 03:59 03:59
WBC
Hgb
Hct
Plt Count
PT
INR
APTT
Sodium
Potassium
Chloride 88 L
Carbon Dioxide Cancelled 17 L
BUN Cancelled 4 L
Creatinine Cancelled
Glucose
Calcium
09/03/23 09/03/23 09/03/23
03:59 03:59 03:59
WBC
Hgb
Hct
Plt Count
PT
INR
APTT
Sodium
Potassium
Chloride
Carbon Dioxide
BUN
Creatinine 0.3 L
Glucose Cancelled 84
Calcium Cancelled 7.6 L
09/03/23 09/03/23 09/03/23
10:01 13:24 17:24
WBC
Hgb
Hct
Plt Count
PT
INR
APTT
Sodium 113 L* Pending Pending
Potassium 3.9 Pending Pending
Chloride 86 L Pending Pending
Carbon Dioxide 18 L Pending Pending
BUN 5 L Pending Pending
Creatinine 0.4 L Pending Pending
Glucose 103 H Pending Pending
Calcium 7.9 L Pending Pending
09/03/23
21:24
WBC
Hgb
Hct
Plt Count
PT
INR
APTT
Sodium Pending
Potassium Pending
Chloride Pending
Carbon Dioxide Pending
BUN Pending
Creatinine Pending
Glucose Pending
Calcium Pending
Vital Signs:
Vital Signs
Temp Pulse Resp BP Pulse Ox
98.9 F 86 24 139/76 95
09/03/23 07:45 09/03/23 09:00 09/03/23 09:00 09/03/23 09:00 09/03/23 09:00
I&O
09/02/23 09/03/23 09/04/23
06:59 06:59 06:59
Intake Total 50 / 50 250 / 250
Output Total 100 / 100
Balance 50 / 50 150 / 150
Physical Exam
-
General: Well Developed and Cachectic
HEENT: Normocephalic, Atraumatic and Moist Mucous Membranes
Respiratory: Clear to Auscultation
Cardiac: Regular Rhythm and S1/S2; Negative Murmur, Rub or Gallop
GI: Soft, Nontender, Nondistended and Normal Bowel Sounds; Negative Organomegaly
Rectal: Deferred by Provider
Musculoskeletal: No Clubbing, No Cyanosis and No Edema
Skin: Negative Rash
Neuro: Awake, No Motor Deficits and Nonfocal/Grossly Intact
Data Reviewed
-
Total Time Spent with Patient (in minutes): 55
[2023-09-03] MEDS: D5W 1000 IV (12:24)
--- NOTE | 2023-09-03 12:45 | PTCARENOTE ---
Remains resting oob. On BSC for yellow urine. Urine osmolarity sent earlier per MD order. Per Md order D5W hung at 50 ml/hr via R forearm IV site. Pt encouraged to order lunch- difficult to figure out what pt wants as she either isn't hungry for
much, doesn't care for particular foods, or isn't allowed them on her diet. Call cisneros in reach.
--- NOTE | 2023-09-03 13:33 | CM ---
CM following re: discharge planning.
Discussed in rounds, reviewed pt's chart, met with pt and pt's at bedside.
Pt is an 82 year old female, admitted with primary dx of Hyponatremia.
Pt reports she lives with and a daughter in a 2SH, no steps to enter, has 3 supportive children. Pt described herself as independent in all areas [place], ambulates independently with a cane, family helps as needed. No VN or SNF history.
PT and OT will evaluate the pt to determine a level of care at discharge.
PCP: Ander Calles
Pharmacy: [facility].
D/C plan: home with anticipated VN services. to transport at discharge.
CM will follow with discharge plan updates as hospitalization progresses
--- NOTE | 2023-09-03 14:00 | PTCARENOTE ---
Ate a few spoonfuls of soup for lunch - about 25% overall. Labs sent. Voided on the commode then assisted back to bed. Gait again is weak but pt is easily able to bear wt. at bedside. [employer]ist in to see pt and spoke with pt and
about diet and different choices to try to meet protein and calorie needs. Skin care given. Protective foam placed on mid/upper back daniel prominences. Call cisneros in reach.
[2023-09-03 14:27] LABS: Blood Urea Nitrogen 5 mg/dl (7-17); Carbon Dioxide 18 mmol/L (22-30); Chloride 86 mmol/L (98-107); Estimated Creatinine Clearance 44 ml/min; Glucose 118 mg/dl (70-99); Potassium 3.6 mmol/L (3.5-5.1); Sodium 113 mmol/L (135-145); eGFR > 60.00
[2023-09-03 14:51] LABS: Phosphorus 1.4 mg/dl (2.5-4.5)
--- NOTE | 2023-09-03 16:30 | PTCARENOTE ---
Remains resting. Visiting with . No complaints. Incont of saturated amt of urine. Carolee care given. Kendell replaced as pt thought she had a brief on. Dr. Dyer updated on Phos level. Dr. Clayton in to see pt and updated. Pt due to
additional labs shortly., IV D5w infusing at 50 ml/hr via R forearm IV site. Turned and repositioned. Pt assists with turning. Skin care given. Call cisneros in reach.
[2023-09-03] MEDS: NEUTRA-PHOS POWDER PACKET 250 MG PO ×2 (17:26→21:40)
[2023-09-03] MEDS: LOVENOX 30 MG SC (17:26)
[2023-09-03] MEDS: FLUSH (NSS) 1 FLUSH IV (17:27)
[2023-09-03 17:50] LABS: Blood Urea Nitrogen 4 mg/dl (7-17); Calcium 7.8 mg/dl (8.4-10.2); Carbon Dioxide 18 mmol/L (22-30); Chloride 88 mmol/L (98-107); Estimated Creatinine Clearance 44 ml/min; Glucose 105 mg/dl (70-99); Potassium 3.6 mmol/L (3.5-5.1); Sodium 111 mmol/L (135-145); eGFR > 60.00
--- NOTE | 2023-09-03 19:30 | PTCARENOTE ---
Labs sent at [address] Vallejo updated on Na++ of 111. Order given to stop IV fluids-D5w- Stopped at 1915. Pt incont of a large amt of urine-mat care given. Repositioned. No changes in assessment
--- NOTE | 2023-09-03 21:00 | PTCARENOTE ---
Assumed care of patient at 1945. Patient alert and oriented. Occasionally forgetful. VSS. NSR on tele monitor. Lung sounds cta on RA. +BS. Poor appetite. No BM. Incontinent of urine. Purewick in place. D5W placed on hold by day shift RN per
Nephrology. Repeat BMP @ 0.
[2023-09-03] MEDS: DESYREL 100 MG PO (21:40)
[2023-09-03 22:21] LABS: Blood Urea Nitrogen 3 mg/dl (7-17); Calcium 7.8 mg/dl (8.4-10.2); Carbon Dioxide 16 mmol/L (22-30); Chloride 87 mmol/L (98-107); Estimated Creatinine Clearance 44 ml/min; Glucose 90 mg/dl (70-99); Potassium 3.8 mmol/L (3.5-5.1); Sodium 113 mmol/L (135-145); eGFR > 60.00
--- NOTE | 2023-09-03 22:30 | PTCARENOTE ---
[address] Vallejo notified. RN advised to repeat BMP in 4 hours and if >115, resume D5W.
[2023-09-04] VITALS (19 sets, daily range): BP systolic 99–155; BP diastolic 60–94; BMI 15.5
--- NOTE | 2023-09-04 00:15 | PTCARENOTE ---
Assessment unchanged at 0000. Patient resting comfortably. No complaints. VSS.
[2023-09-04 02:09] LABS: Blood Urea Nitrogen 3 mg/dl (7-17); Calcium 7.5 mg/dl (8.4-10.2); Carbon Dioxide 17 mmol/L (22-30); Chloride 94 mmol/L (98-107); Estimated Creatinine Clearance 44 ml/min; Glucose 86 mg/dl (70-99); Potassium 3.5 mmol/L (3.5-5.1); Sodium 118 mmol/L (135-145); eGFR > 60.00
--- NOTE | 2023-09-04 02:12 | PTCARENOTE ---
Na resulted at 118. Per Dr. Vallejo, goal Na 115 by am. D5W resumed. Will recheck BMP in 4 hours.
--- NOTE | 2023-09-04 03:55 | PTCARENOTE ---
No changes. Vitals stable. D5W infusing. Next labs due at 0530.
[2023-09-04 05:46] LABS: Hematocrit 34.7 % (37.0-47.0); Hemoglobin 12.9 g/dL (12.0-16.0); Mean Corp Hgb Conc. 37.2 g/dL (33.0-37.0); Mean Corpuscular Hgb 31.6 pg (27.0-31.0); Platelet Count 391 10^3/uL (130-400); Red Blood Cell Count 4.08 10^6/uL (4.20-5.40); White Blood Cell Count 5.4 10^3/uL (4.8-10.8)
[2023-09-04 06:23] LABS: Blood Urea Nitrogen 3 mg/dl (7-17); Calcium 7.8 mg/dl (8.4-10.2); Carbon Dioxide 21 mmol/L (22-30); Chloride 95 mmol/L (98-107); Estimated Creatinine Clearance 43 ml/min; Glucose 103 mg/dl (70-99); Magnesium 2.4 mg/dl (1.6-2.3); Phosphorus 2.1 mg/dl (2.5-4.5); Potassium 3.3 mmol/L (3.5-5.1); Sodium 122 mmol/L (135-145); eGFR > 60.00
--- NOTE | 2023-09-04 06:51 | PTCARENOTE ---
Dr. Vallejo notified of Na 122. RN advised to increase D5W rate to 100 ml/hr and check urine osmo.
[2023-09-04] MEDS: KCL 270 MEQ IV (08:28)
--- NOTE | 2023-09-04 08:30 | W.PN.INTV ---
Today's Communication / Plan
Recommendations
Continue with D5W
Frequent BMP checks, nephrology input appreciated
Continue trazodone
Follow blood pressure
Out of bed to chair, aspiration precautions
Assessment
-
Patient is a 82-year-old female with past medical history of hypertension who presented to the ED with nausea, vomiting, diarrhea, weakness, and confusion for the past 2 to 3 days. Patient's HCTZ was recently increased from 2-3 times weekly dose to
a daily dose. On presentation patient was hypokalemic and hyponatremic. Potassium was repleted and patient received 50 mL 3% sodium chloride bolus and was admitted to ICU for further evaluations.
ASSESSMENT:
Presentation with weakness and confusion.
Severe hyponatremia.
Hypokalemia.
CONDITIONS PRIOR TO ADMISSION:
Essential Hypertension
Hyperlipidemia
Chronic Back Pain
Osteoporosis
GERD
Anxiety/Depression
Impression/Plan:
Presentation with weakness and confusion.
-Weakness has improved and patient is currently oriented x 3.
-Symptoms most likely due to electrolyte abnormalities given her acute vomiting and diarrhea and recent increase in hydrochlorothiazide dose. This may also be compounded with her history of excess free water intake.
-Continue electrolyte repletion and monitoring serum sodium level with improved potassium level.
-Continue free water restriction.
-Hold offending drugs�HCTZ, amlodipine, trazodone, Effexor.
-Restart home diazepam dose to prevent benzodiazepine withdrawal.
-Continue monitoring for clinical improvement for the next 24 hours with plans to transfer if she continues to be stable.
Severe hyponatremia/hypokalemia.
-Presentation with symptomatic hyponatremia and elevated urine sodium level most likely due to increased diuretic use and/polydipsia.
-Serums sodium level improving with 50 mL 3% NaCl boluses and normal saline IVF received in the ED.
-Continue free water restriction.
-BMP every 4 hours to monitor electrolytes.
-Replete with normal saline as needed.
-Nephrology following
Hypokalemia.
-Serum potassium level improved with KCl administration.
-Continue to monitor and replete potassium as needed.
-BMP every 4 hours to monitor electrolytes.
Essential Hypertension.
-Hold HCTZ for now due to hyponatremia.
-Hold amlodipine and reassess at discharge as this could potentially cause peripheral edema.
-Monitor blood pressure
Anxiety/Depression.
-Hold trazodone and Effexor due to symptomatic hyponatremia.
-Continue diazepam to prevent benzodiazepine withdrawal in a chronic user.
GERD.
-Continue Protonix.
Severe Protein Calorie Malnutrition
-Consult Dietary
DVT PPx: Lovenox
Code Status: DNR confirmed with family at bedside at time of admission

The above was reviewed at length. Agree with above plan and recommendations. Patient seen and examined independently and with the resident. Patient is a pleasant 82-year-old female who recently saw her primary. She has lost about 20 pounds over
the last few months. She has been complaining of increasing lower extremity swelling, amlodipine was discontinued, hydrochlorothiazide increased. Patient admits to taking at least 64 ounces of water a day. Patient had episodes of emesis,
diarrhea, fatigue. Upon arrival to [facility], Sodium level 106, afebrile, pulse 89, breathing at 22, blood pressure 140/76, 96%. Patient was admitted to ICU for further management of hyponatremia. Was given 1 dose of 3% saline.
Presently patient is feeling much better. She is asking when she can go home. She has a wedding to attend the evening of 09/05/2023
Past medical history, social history, family history, review of system as below
History also obtained from at bedside
Physical exam salient features include cachexia, kyphoscoliosis
She has mild crackles at the base, no murmurs, no edema. Muscle strength is 5 out of 5
She has some mild right flank discomfort, no rebound or guarding
Data reviewed
A/P
At this time, sodium level appears to be 112
Likely combination of increasing hydrochlorothiazide dose and polydipsia
D5W to be started to slow rise of sodium levels.
Nephrology following
Will hold potential agents contributing to hyponatremia
Okay to use trazodone tonight per discussion with nephrology. Hold hydrochlorothiazide, effexor
Continue with every 4hr BMP
Significant weight loss is noted. Patient is lifelong non-smoker. Chest x-ray without acute findings.
Will defer further workup for weight loss to primary physician as outpatient
Dietary evaluation, optimize nutrition
Ensure supplements, light weights at home to develop muscle mass
Reviewed with critical care nursing, pharmacy, respiratory care
Reviewed with at bedside
TCCT 31 min
Subjective Dataa
Subjective Data
Date of Service:
Date of Service: September 04, 2023
Objective Data
Data Reviewed
Vital Signs / I&O / Oxygen:
Vital Signs
Temp Pulse Resp BP Pulse Ox
98.9 F 80 16 106/72 98
09/04/23 08:04 09/04/23 08:00 09/04/23 08:00 09/04/23 08:00 09/04/23 08:00
Intake and Output
09/03/23 09/04/23 09/05/23
06:59 06:59 06:59
Intake Total 50 / 50 1070 / 1070
Output Total 1300 / 1300
Balance 50 / 50 -230 / -230
SaO2 98
Labs/Micro/Reports
Lab Data
09/04/23 05:37
[2023-09-04] MEDS: NEUTRA-PHOS POWDER PACKET 250 MG PO ×2 (09:01→13:37)
[2023-09-04] MEDS: PROTONIX 40 MG PO (09:02)
[2023-09-04] MEDS: VALIUM 5 MG PO ×2 (09:02→20:18)
--- NOTE | 2023-09-04 09:15 | PTCARENOTE ---
Rec'd pt at 0800 sleeping. Does awaken to verbal stimuli. Was groggy initially but then woke up and was alert and oriented. Does get sl forgetful but for the most part is appropriate. BYERS. PAOLA at 3 mm. Denies headache or dizziness. Denies pain.
Skin is pale pink wm and dry. Respirs are unlabored on RA with sats of 98%. BS are decreased at the bases. Occasional moist non-prod cough. Monitor SR. + pulses. No edema. Abd is soft with + BS. Denies nausea. Purewick in place. IV D5w infusing at
100 mls/hr via L forearm IV site. Site wnl. KCL 40 meq rider hung at 0830 via L forearm. Capped int intact R forearm. LABS sent as ordered. Pt repositioned. Speech therapy in to evaluate pt. No changes from currently diet. Call cisneros in reach. Plan
of care reviewed with pt
[2023-09-04 09:41] LABS: Blood Urea Nitrogen 2 mg/dl (7-17); Calcium 7.8 mg/dl (8.4-10.2); Carbon Dioxide 22 mmol/L (22-30); Chloride 96 mmol/L (98-107); Estimated Creatinine Clearance 43 ml/min; Glucose 113 mg/dl (70-99); Potassium 3.6 mmol/L (3.5-5.1); Sodium 122 mmol/L (135-145); eGFR > 60.00
--- NOTE | 2023-09-04 10:00 | PTOTSP ---
Dysphagia Evaluation
Patient presents with signs concerning for WFL-mild oral, unspecified pharyngeal and possible esophageal dysphagia which may be due to acute illness (abnormal lab values with acute changes to cognition/processing), her deconditioning/weakness,
history of prior stroke, history of GERD, and history of moderate hiatal hernia. Weight loss and significant malnutrition noted. No pulmonary complications present (i.e., chest x-ray without PNA). RD following.
Recommend:
1. IDDSI Level 6 (Soft and Bite Sized), IDDSI Level 0 (Thin Liquids)
2. Medications as best tolerated
3. Strategies: upright to 90 degrees, small SINGLE sips/bites, slow rate, alternate solids and liquids, remain upright for 30 minutes after PO intake
In order to further assess for reason for sensation of increased 'effort' when swallowing solids, would need to consider video swallow study as physiologic vs anatomic reasons cannot be ruled out with this clinical bedside swallowing evaluation.
Discussed with medical team.
--- NOTE | 2023-09-04 10:36 | W.PN.HOSP.TC ---
Today's Communication/Plan
-
replete lytes
D5W
VSE in am
nephor/ICU recs
Assessment / Plan
Assessment / Plan
Severe Symptomatic Hyponatremia
-Patient received 3% NaCl 50mL bolus in ED
-Monitor sodium level q4h
-Continue fluid restriction
-Sodium 122 and on hypotonic saline
Hypokalemia
-replete and monitor
Essential Hypertension
-Hold HCTZ due to hyponatremia
-Hold amlodipine due to complaints of lower ext edema
-Monitor blood pressure. Blood pressure 106/72
Anxiety/Depression
-Hold trazodone and Effexor as causes of hyponatremia
-restart diazepam
GERD
-Continue Protonix
Hypokalemia/Hypophosthemia
-replete/monitor
Dysphagia
-IDDSI Level 6
-VSe ordered for am
Severe Protein Calorie Malnutrition
Severe weight loss in short period of time
-Consult Dietary likely subacute vs. chronic
-Plan for imaging pending stabilization of acute issues
DVT proph: Lovenox
Code Status: DNR confirmed with family at bedside at time of admission
Anticipated Discharge: > 48 hours
Subjective/Interval History
-
Date of Service: September 04, 2023
Eating breakfast
Not much appetite
Objective Data
-
Labs:
Laboratory Results
09/04/23 09/04/23 09/04/23
01:39 05:37 09:09
WBC 5.4
Hgb 12.9
Hct 34.7 L
Plt Count 391
Sodium 118 L* 122 L 122 L
Potassium 3.5 3.3 L 3.6
Chloride 94 L 95 L 96 L
Carbon Dioxide 17 L 21 L 22
BUN 3 L 3 L 2 L
Creatinine 0.3 L 0.4 L 0.4 L
Glucose 86 103 H 113 H
Calcium 7.5 L 7.8 L 7.8 L
Vital Signs:
Vital Signs
Temp Pulse Resp BP Pulse Ox
98.9 F 80 16 106/72 98
09/04/23 08:04 09/04/23 08:00 09/04/23 08:00 09/04/23 08:00 09/04/23 08:00
I&O
09/03/23 09/04/23 09/05/23
06:59 06:59 06:59
Intake Total 50 / 50 1420 / 1520 367.5 / 367.5
Output Total 1300 / 1300
Balance 50 / 50 120 / 220 367.5 / 367.5
Physical Exam
-
General: Well Developed and Cachectic
HEENT: Normocephalic, Atraumatic and Moist Mucous Membranes
Respiratory: Clear to Auscultation
Cardiac: Regular Rhythm and S1/S2; Negative Murmur, Rub or Gallop
GI: Soft, Nontender, Nondistended and Normal Bowel Sounds; Negative Organomegaly
Rectal: Deferred by Provider
Musculoskeletal: No Clubbing, No Cyanosis and No Edema
Skin: Negative Rash
Neuro: Awake, No Motor Deficits and Nonfocal/Grossly Intact
Psych: Calm
Data Reviewed
-
Total Time Spent with Patient (in minutes): 55
--- NOTE | 2023-09-04 10:57 | PTCARENOTE ---
Sl better appetite for breakfast. Dr. Vallejo in and aware of 0900 labs. At 1010 IV fluids increased to 150 ml/hr. KCL rider infusing- rate decreased to 45 mls/hr as it was hurting pts arm too much at higher rate. Pt voided yellow urine and Urine
osmolarity sent. Family at the bedside.
[2023-09-04 11:35] LABS: Osmolality Urine 88 mOsm/kg (300-900)
[2023-09-04] MEDS: D5W 1000 IV ×2 (11:52→18:11)
--- NOTE | 2023-09-04 12:00 | PTCARENOTE ---
Pt assisted on to the BSC for no urine then OOB to the chair. Pt has already voided 800 mls of urine via the purewick. Asssessment overall is unchanged. Visiting with family. Gait is weak but able to bear wt. Purewick taken out as pt will try to use
the commode. No other changes. KCL rider and IV fluids infusing.
--- NOTE | 2023-09-04 12:28 | W.PN.NEPH.PH ---
Today's Communication / Plan
-
see plan
Assessment/Plan
-
IMP:
Severe Symptomatic Hyponatremia
Hypokalemia
No gap met acidosis
Essential Hypertension
Anxiety/Depression
GERD/HH
Severe Protein Calorie Malnutrition
Plan:
A/w gen weakness and confusion sodium noted 106
severe [id number] ADH state with U osmo 392, high U na post 3%
worsened with HCTZ use, and possible low solute with high free water intake
note she is on SNRI -currently on hold
goal of correction 6-8meq/day, high risk of CPM
current sodium at 122 midly overcorrected, resumed hypotonic fluids, increase rate to 150cc/hr
recheck U osmo, if low may need DDAVP
check Q4hr sodiums, goal of sodium tonight is 119. by morning 122.
TSH and cortisol were normal
BP stable with holding meds
maintain FR 40ounces/day
replace k
encourage solute intake
mild met acidosis-improving
d/w nursing
-
-
Date of Service: September 04, 2023
CC / HPI / ROS
-
Chief Complaint:
Hyponatremia
History of Present Illness:
sodium was 113 last night but this am 122
BP stable
UOP non oliguric with purewick
Review of Systems:
no complaints
no cp or sob
Labs
-
Labs:
WBC 5.4 10^3/uL (4.8-10.8) 09/04/23 05:37
RBC 4.08 10^6/uL (4.20-5.40) L 09/04/23 05:37
Hgb 12.9 g/dL (12.0-16.0) 09/04/23 05:37
Hct 34.7 % (37.0-47.0) L 09/04/23 05:37
Plt Count 391 10^3/uL (130-400) 09/04/23 05:37
Sodium 122 mmol/L (135-145) L 09/04/23 09:09
Potassium 3.6 mmol/L (3.5-5.1) 09/04/23 09:09
Chloride 96 mmol/L (98-107) L 09/04/23 09:09
Carbon Dioxide 22 mmol/L (22-30) 09/04/23 09:09
BUN 2 mg/dl (7-17) L 09/04/23 09:09
Creatinine 0.4 mg/dL (0.6-1.0) L 09/04/23 09:09
eGFR > 60.00 09/04/23 09:09
Glucose 113 mg/dl (70-99) H 09/04/23 09:09
Calcium 7.8 mg/dl (8.4-10.2) L 09/04/23 09:09
Phosphorus 2.1 mg/dl (2.5-4.5) L 09/04/23 05:37
Albumin 3.7 g/dl (3.5-5.0) 09/02/23 19:48
Physical Exam
-
Vital Signs:
Vital Signs
Temp Pulse Resp BP Pulse Ox
98.1 F 95 21 105/94 99
09/04/23 12:04 09/04/23 10:00 09/04/23 10:00 09/04/23 10:00 09/04/23 10:00
Cardiovascular:: Regular rate and rhythm
Respiratory:: Bilateral: CTA (decreased)
Lung Excursion:: Normal
Abdomen:: Nontender and Soft
Extremity Edema:: None: Bilateral:
Abarca Catheter: No
--- NOTE | 2023-09-04 12:34 | CM ---
CM following re: discharge planning.
Discussed in Rounds, reviewed pt's chart, met with pt. Pt's and pt's daughter at bedside.
ST evaluation noted - skilled services indicated.
PT and OT evaluations requested to determine a level of care at discharge.
D/C plan: home with anticipated VN services. Pending PT/OT evaluations.
CM will follow with discharger plan updates as hospitalization progresses
--- NOTE | 2023-09-04 13:20 | PTCARENOTE ---
Pt was incont of a saturated amt of urine on the Covidien pad and on the floor. Carolee care given and purewick replaced. VS as documented. Will send BMP. Awaiting lunch. No other changes
[2023-09-04 13:48] LABS: Blood Urea Nitrogen 3 mg/dl (7-17); Calcium 7.9 mg/dl (8.4-10.2); Carbon Dioxide 15 mmol/L (22-30); Chloride 100 mmol/L (98-107); Estimated Creatinine Clearance 43 ml/min; Glucose 149 mg/dl (70-99); Potassium 4.1 mmol/L (3.5-5.1); Sodium 122 mmol/L (135-145); eGFR > 60.00
--- NOTE | 2023-09-04 14:37 | W.PN.INTV ---
Documented by User: Long Snyder MD, Resident 09/04/23 15:51
Today's Communication / Plan
Recommendations
Serum sodium level currently plateaued at 122 despite hypotonic saline administrations.
Continue D5W with serum sodium goal of 119 by tonight and 122 by morning per nephrology.
Monitor serum sodium level with gentle correction of 6 to 8 mEq/day.
Potassium level normalized with KCl rider; BMP Q4hr to monitor electrolytes.
Recheck urine osmolality for correction with D5W administration.
Monitor BP with hold on HCTZ.
Continue fluid restriction.
VSE to assess for physiologic versus anatomic pharyngeal/esophageal abnormalities.
Assessment
-
Patient is a 82-year-old female with past medical history of hypertension who presented to the ED with nausea, vomiting, diarrhea, weakness, and confusion for the past 2 to 3 days. Patient's HCTZ was recently increased from 2-3 times weekly dose to
a daily dose. On presentation patient was hypokalemic and hyponatremic. Potassium was repleted and patient received 50 mL 3% sodium chloride bolus and was admitted to ICU for further evaluations. Overnight, patient was noted to be occasionally
forgetful with serum sodium level of 122 and potassium level of 3.3. Patient received correctional D5W and K rider infusion with improvement of potassium to 3.6 while serum sodium level remained at 122. Patient was also found to have mild
dysphagia overnight. She was managed in upright position at 90 degrees and diets was advanced to IDDSI 6 soft and bite-size. Patient seen today with and daughter in the room. Patient is alert and oriented x 3 with no complaints. Her
blood pressure has greatly improved. She denies headache, shortness of breath, chest pain, abdominal pain, dizziness, and palpitations.
ASSESSMENT:
Presentation with weakness and confusion.
Severe hyponatremia.
Hypokalemia.
CONDITIONS PRIOR TO ADMISSION:
Essential Hypertension
Hyperlipidemia
Chronic Back Pain
Osteoporosis
GERD
Anxiety/Depression
Impression/Plan:
Presentation with weakness and confusion.
-Weakness has improved and patient is currently oriented x 3.
-Symptoms most likely due to electrolyte abnormalities given her acute vomiting and diarrhea and recent increase in hydrochlorothiazide dose. This may also be compounded with her history of excess free water intake.
-Continue electrolyte repletion and monitoring serum sodium level with improved potassium level.
-Continue free water restriction.
-Hold offending drugs�HCTZ, amlodipine, Effexor.
-Restart home diazepam dose to prevent benzodiazepine withdrawal.
-Continue monitoring for clinical improvement for the next 24 hours with plans to transfer if she continues to be stable.
Severe hyponatremia/hypokalemia.
-Presentation with symptomatic hyponatremia with serum sodium level 106 and elevated urine sodium level 128 most likely due to increased diuretic versus excess free water intake. Also suspect SIADH given slightly elevated urine osmolality.
-Serums sodium level improved to 118 with 50 mL 3% NaCl boluses and normal saline IVF received in the ED and currently plateaued at 122, which is overcorrected.
-Continue D5W with serum sodium goal of 119 by tonight and 122 by morning per nephrology.
-Monitor serum sodium level with gentle correction of 6 to 8 mEq/day.
-Continue free water restriction.
-BMP every 4 hours to monitor electrolytes.
-Replete with normal saline as needed.
-Nephrology following
Hypokalemia.
-Serum potassium level normalized with KCl administration.
-Continue to monitor and replete potassium as needed.
-BMP every 4 hours to monitor electrolytes.
Dysphagia.
-Patient noted with unspecified dysphagia.
-Checks x-ray unremarkable.-Diet advanced to IDDSI level 6 and thin liquids and tolerating.
-VSE to assess for physiologic versus anatomic pharyngitis/esophageal abnormalities.
Essential Hypertension.
-Hold HCTZ for now due to hyponatremia.
-Hold amlodipine and reassess at discharge as this could potentially cause peripheral edema.
-Monitor blood pressure
Anxiety/Depression.
-Hold Effexor due to symptomatic hyponatremia.
-Continue trazodone.
-Continue diazepam to prevent benzodiazepine withdrawal in a chronic user.
GERD.
-Continue Protonix.
Severe Protein Calorie Malnutrition
-Dietary evaluations and defer further weight loss workup to outpatient primary care.
DVT PPx: Lovenox
Code Status: DNR confirmed with family at bedside at time of admission

Subjective Dataa
Subjective Data
Date of Service:
Date of Service: September 04, 2023
Subjective:
82-year-old female presented to ED 09/02/2023 with weakness and confusion and admitted with serum sodium level of 106 and urine sodium level of 128. Head CT scan 09/02/2023 was unremarkable. She received 3% hypertonic saline in the ED prior to
admission. Mental status improved with improving sodium level. Overnight, patient noted to be occasionally forgetful with current sodium level of 122. Patient received correctional D5W throughout the night with no change in sodium level. She
also received KCl rider and her potassium level improved from 3.3-4.1. Urine culture with contaminants. Patient continues to appear cachectic with poor oral intake.Patient seen today with and daughter in the room, alert and oriented. She
denies chest pain, shortness of breath, headaches, fever, chills, dizziness, and abdominal pain. She appears less confused.
Objective Data
Data Reviewed
Vital Signs / I&O / Oxygen:
Vital Signs
Temp Pulse Resp BP Pulse Ox
98.1 F 100 21 121/77 99
09/04/23 12:04 09/04/23 14:00 09/04/23 14:00 09/04/23 14:00 09/04/23 14:00
Intake and Output
09/03/23 09/04/23 09/05/23
06:59 06:59 06:59
Intake Total 50 / 50 1420 / 1520 1497.5 / 1497.5
Output Total 1300 / 1300 800 / 800
Balance 50 / 50 120 / 220 697.5 / 697.5
SaO2 99
Physical Exam
General: Comfortable and Poor Appetite
HEENT: Normocephalic
Cardiovascular: S1-S2, Regular Rhythm, Murmur (n) and Peripheral Edema (n)
Respiratory: Clear, Crackles and Non-Labored Respirations
GI: Soft, Non Distended, Non Tender and Normal Bowel Sounds
Neurology: Awake, Alert and AO x 3
Skin: Warm, Dry and Good Color
Labs/Micro/Reports
Lab Data
09/04/23 05:37
Microbiology
09/02/23 21:48 Urine Urine Culture - Final

Documented by User: Jerome Sheldon MD 09/04/23 16:14
Assessment
-
Patient is a 82-year-old female with past medical history of hypertension who presented to the ED with nausea, vomiting, diarrhea, weakness, and confusion for the past 2 to 3 days. Patient's HCTZ was recently increased from 2-3 times weekly dose to
a daily dose. On presentation patient was hypokalemic and hyponatremic. Potassium was repleted and patient received 50 mL 3% sodium chloride bolus and was admitted to ICU for further evaluations. Overnight, patient was noted to be occasionally
forgetful with serum sodium level of 122 and potassium level of 3.3. Patient received correctional D5W and K rider infusion with improvement of potassium to 3.6 while serum sodium level remained at 122. Patient was also found to have mild
dysphagia overnight. She was managed in upright position at 90 degrees and diets was advanced to IDDSI 6 soft and bite-size. Patient seen today with and daughter in the room. Patient is alert and oriented x 3 with no complaints. Her
blood pressure has greatly improved. She denies headache, shortness of breath, chest pain, abdominal pain, dizziness, and palpitations.
ASSESSMENT:
Presentation with weakness and confusion.
Severe hyponatremia.
Hypokalemia.
CONDITIONS PRIOR TO ADMISSION:
Essential Hypertension
Hyperlipidemia
Chronic Back Pain
Osteoporosis
GERD
Anxiety/Depression
Impression/Plan:
Presentation with weakness and confusion.
-Weakness has improved and patient is currently oriented x 3.
-Symptoms most likely due to electrolyte abnormalities given her acute vomiting and diarrhea and recent increase in hydrochlorothiazide dose. This may also be compounded with her history of excess free water intake.
-Continue electrolyte repletion and monitoring serum sodium level with improved potassium level.
-Continue free water restriction.
-Hold offending drugs�HCTZ, amlodipine, Effexor (may need to restart at half dose).
-Restart home diazepam dose to prevent benzodiazepine withdrawal.
-Continue monitoring for clinical improvement for the next 24 hours with plans to transfer if she continues to be stable.
Severe hyponatremia/hypokalemia.
-Presentation with symptomatic hyponatremia with serum sodium level 106 and elevated urine sodium level 128 most likely due to increased diuretic versus excess free water intake. Also suspect SIADH given slightly elevated urine osmolality.
-Serums sodium level improved to 118 with 50 mL 3% NaCl boluses and normal saline IVF received in the ED and currently plateaued at 122, which is overcorrected.
-Continue D5W with serum sodium goal of 119 by tonight and 122 by morning per nephrology.
-Monitor serum sodium level with gentle correction of 6 to 8 mEq/day.
-Nephrology following, fluids per nephrology (Free water vs NS depending on BMP)
Hypokalemia.
-Serum potassium level normalized with KCl administration.
-Continue to monitor and replete potassium as needed.
-BMP every 4 hours to monitor electrolytes.
Dysphagia.
-Patient noted with unspecified dysphagia.
-Checks x-ray unremarkable.-Diet advanced to IDDSI level 6 and thin liquids and tolerating.
-VSE to assess for physiologic versus anatomic pharyngitis/esophageal abnormalities
-Interestingly, squeaks on exam suggest chronic airways dz, which can be seen with chronic aspiration.
Essential Hypertension.
-Hold HCTZ for now due to hyponatremia.
-Hold amlodipine and reassess at discharge as this could potentially cause peripheral edema.
-Monitor blood pressure
Anxiety/Depression.
-May need to resume Effexor at half dose in next 24-48 hours depending on Na levels
-Continue trazodone.
-Continue diazepam to prevent benzodiazepine withdrawal in a chronic user.
GERD.
-Continue Protonix.
Severe Protein Calorie Malnutrition
-Dietary evaluations and defer further weight loss workup to outpatient primary care.
DVT PPx: Lovenox
Code Status: DNR confirmed with family at bedside at time of admission

Patient seen and examined independently and with resident. Agree with above
Patient feels well without complaints. She felt she slept well with her trazodone and appreciated reinstitution.
Chest exam with mild crackles at the base, few inspiratory squeaks.
Sodium levels 122 throughout the day, potassium repleted
Remains on D5W
Remains without symptoms
Moving forward
Continue with every 4 hour sodium checks, defer fluids to nephrology. Presently on D5W. Goal tonight will be 119, tomorrow morning 120-122
continue with aspiration precautions
Out of bed to chair, PT/OT as able
Will likely need to restart Effexor, will consider 75 mg to start in the next 24 hours
Okay for transfer out of ICU tomorrow if sodium levels stable
Objective Data
Physical Exam
Respiratory: Crackles (yes along with inspiratory squeaks)
[2023-09-04] MEDS: DDAVP 50.25 MCG IV (15:11)
[2023-09-04] MEDS: FLUSH (NSS) 1 FLUSH IV (15:11)
--- NOTE | 2023-09-04 15:15 | PTCARENOTE ---
Pt assisted back to bed. Overall tolerated being oob well. Appetite remains poor and had declined Ensure earlier. VS as documented. Skin care given. DDAVP 1 mcg IV given per md order. IV fluids remain at 150 ml/hr. KCL rider completed. Repositioned.
Call cisneros in reach.
--- NOTE | 2023-09-04 16:45 | PTCARENOTE ---
Na+ level sent
[2023-09-04 17:34] LABS: Sodium 120 mmol/L (135-145)
--- NOTE | 2023-09-04 18:00 | PTCARENOTE ---
Dr. Vallejo updated on Na++ level. IV fluid rate decreased to 100 mls hr. Pt eating dinner currently. No other changes
[2023-09-04] MEDS: LOVENOX 30 MG SC (18:08)
[2023-09-04 19:38] LABS: Sodium 118 mmol/L (135-145)
--- NOTE | 2023-09-04 20:10 | PTCARENOTE ---
Na 118. D5W placed on hold per THERMOPLASTIC TECHNICIAN and repeat BMP ordered in 2 hours.
--- NOTE | 2023-09-04 21:36 | PTCARENOTE ---
Rec'd care of patient at 1920. Patient resting comfortably in bed. Vitals stable. Afebrile. AAOx3. Occasionally forgetful. NSR on tele monitor. POX 100% on RA. Lung sounds cta; slightly diminished in b/l bases. +BS. Appetite remains poor. Patient
states she had a BM on day shift. Voiding via purewick. Next Na level due at 2200.
[2023-09-04] MEDS: DESYREL 100 MG PO (21:57)
[2023-09-04 22:28] LABS: Blood Urea Nitrogen 4 mg/dl (7-17); Calcium 7.5 mg/dl (8.4-10.2); Carbon Dioxide 18 mmol/L (22-30); Chloride 92 mmol/L (98-107); Estimated Creatinine Clearance 43 ml/min; Glucose 99 mg/dl (70-99); Potassium 3.6 mmol/L (3.5-5.1); Sodium 117 mmol/L (135-145); eGFR > 60.00
--- NOTE | 2023-09-04 22:48 | PTCARENOTE ---
[address] Vallejo notified. Repeat level ordered for 0100.
[2023-09-05] VITALS (19 sets, daily range): BP systolic 105–153; BP diastolic 59–87; PULSE 87–98; BMI 15.5; BMI 17.8
--- NOTE | 2023-09-05 00:44 | PTCARENOTE ---
Systems reviewed. No changes. VSS. Repeat Na level drawn.
[2023-09-05 01:05] LABS: Sodium 120 mmol/L (135-145)
--- NOTE | 2023-09-05 02:51 | PTCARENOTE ---
Patient observed to only have scant urine output overnight. Bladder scanned for 588 cc's. Patient encouraged to try and void. Placed on bedside commode x1 assistance. Patient unable to void. Order to straight cath obtained. At 0230, 500 cc's of
yellow urine drained from bladder without difficulty. Patient washed and repositioned for comfort. No complaints. VSS.
[2023-09-05 05:11] LABS: Hematocrit 31.1 % (37.0-47.0); Hemoglobin 11.2 g/dL (12.0-16.0); Mean Corpuscular Hgb 31.3 pg (27.0-31.0); Mean Corpuscular Volume 86.9 fL (81.0-99.0); Mean Platelet Volume 9.1 fL (7.4-10.4); Platelet Count 373 10^3/uL (130-400); Red Blood Cell Count 3.58 10^6/uL (4.20-5.40); Red Cell Dist. Width 12.3 % (11.5-14.5); White Blood Cell Count 4.2 10^3/uL (4.8-10.8)
[2023-09-05 05:25] LABS: Blood Urea Nitrogen 3 mg/dl (7-17); Calcium 7.1 mg/dl (8.4-10.2); Carbon Dioxide 18 mmol/L (22-30); Chloride 96 mmol/L (98-107); Estimated Creatinine Clearance 42 ml/min; Glucose 101 mg/dl (70-99); Phosphorus 1.5 mg/dl (2.5-4.5); Potassium 3.7 mmol/L (3.5-5.1); Sodium 118 mmol/L (135-145); eGFR > 60.00
[2023-09-05] MEDS: CALCIUM GLUCONATE 130 MG IV (06:27)
--- NOTE | 2023-09-05 08:21 | W.PN.INTV ---
Documented by User: Long Snyder MD, Resident 09/05/23 12:26
Today's Communication / Plan
Recommendations
BMP every 4 hours to monitor electrolytes.
Speech and swallow evaluation with aspiration precautions.
Hold HCTZ with hyponatremia;and monitor blood pressure.
Restarted Effexor 75 ER mg once daily
VSE today with aspiration precautions.
Dietary evaluation to optimize nutrition.
Transfer to telemetry, pulmonary will sign off.
Assessment
-
Patient is a 82-year-old female with past medical history of hypertension who presented to the ED with nausea, vomiting, diarrhea, weakness, and confusion for the past 2 to 3 days. Patient's HCTZ was recently increased from 2-3 times weekly dose to
a daily dose. On presentation patient was hypokalemic and hyponatremic. Potassium was repleted and patient received 50 mL 3% sodium chloride bolus and was admitted to ICU for further evaluations.
ASSESSMENT:
Presentation with weakness and confusion.
Improving.
Presentation with severe hyponatremia.
Improving with free water restriction and IVF
Hypokalemia.
Normalized with KCl.
CONDITIONS PRIOR TO ADMISSION:
Essential Hypertension
Hyperlipidemia
Chronic Back Pain
Osteoporosis
GERD
Anxiety/Depression
Impression/Plan:
Presentation with weakness and confusion.
-Weakness has improved and patient is currently oriented x 3.
-Symptoms most likely due to electrolyte abnormalities given her acute vomiting and diarrhea and recent increase in hydrochlorothiazide dose. This may also be compounded with her history of excess free water intake.
-Sodium checks every 4 hours defer fluid management to nephrology.
-Continue free water restriction.
-Hold offending drugs�HCTZ and amlodipine.
-Continue trazodone.
-Restarted Effexor at 75 ER once daily.
-Continue diazepam.
-Continue monitoring for clinical improvement for the next 24 hours with plans to transfer if she continues to be stable.
Severe hyponatremia.
-Presentation with symptomatic hyponatremia of 106 and elevated urine sodium level of 128 most likely due to increased diuretic use and/polydipsia.
-Continue gentle serum sodium level correction at this rates 6 to 8 mEq/L with goal of 124 today.
-BMP every 4 hours to monitor electrolytes.
-Defer fluid management to nephrology (Free water versus normal saline depending on BMP).
-Continue free water restriction.
-Nephrology following
Hypokalemia.
-Serum potassium level normalized with KCl administration.
-Continue to monitor and replete potassium as needed.
-BMP every 4 hours to monitor electrolytes.
Essential Hypertension.
-Hold HCTZ for now due to hyponatremia.
-Hold amlodipine and reassess at discharge as this could potentially cause peripheral edema.
-Monitor blood pressure.
Dysphagia.
-Patient noted with unspecified dysphagia.
-Checks x-ray unremarkable.-Diet advanced to IDDSI level 6 and thin liquids and tolerating.
-VSE today to assess for physiologic versus anatomic pharyngitis/esophageal abnormalities.
-Interestingly, squeaks on exam suggest chronic airways dz, which can be seen with chronic aspiration.
Anxiety/Depression.
-Hold trazodone and Effexor due to symptomatic hyponatremia.
-Continue diazepam to prevent benzodiazepine withdrawal in a chronic user.
GERD.
-Continue Protonix.
Severe Protein Calorie Malnutrition
-Consult Dietary
DVT PPx: Lovenox
Code Status: DNR confirmed with family at bedside at time of admission
Subjective Dataa
Subjective Data
Date of Service:
Date of Service: September 05, 2023
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
Subjective:
82-year-old female past medical history of hypertension presented to the ED for 02/13/2024 with weakness and confusion. On presentation he was hypokalemic and hyponatremic. Chest x-ray and head CT scan was both unremarkable. Her potassium was
repleted and she received 3% hypertonic saline in the ED and was admitted to ICU for further management. Has serum sodium level improved to 122 and potassium was between 3.3 and 3.6. Patient received correction at D5W and K rider infusion at a rate
to allow gentle correction of serum sodium level at 6 to 8 mEq/L/day. Patient was also found to have mild dysphagia and her diet was advanced appropriately. Overnight, her serum sodium level goal was obtained at 118 with goal of 122 today.
Patient was treated with a dose of DDAVP 1 mg IV for low urine osmole's. Her blood pressure has been labile ranging from 100/60 to 153/69. Her serum potassium levels has also stabilized. Bladder scan follow urine output with 588 cc yellow urine
obtained. She was subsequently straight cath with 500 cc yellow urine obtained. Today, patient remains afebrile and labs and oriented x 3 even though occasionally forgetful which seems to be her baseline. Patient denies chest pain, headache,
shortness of breath, dizziness, and palpitations.
Objective Data
Data Reviewed
Vital Signs / I&O / Oxygen:
Vital Signs
Temp Pulse Resp BP Pulse Ox
98.4 F 74 16 153/69 100
09/05/23 07:37 09/05/23 06:00 09/05/23 06:00 09/05/23 06:00 09/05/23 06:00
Intake and Output
09/04/23 09/05/23 09/06/23
06:59 06:59 06:59
Intake Total 1420 / 1520 2762.5 / 2762.5
Output Total 1300 / 1300 1300 / 1300
Balance 120 / 220 1462.5 / 1462.5
SaO2 100
Physical Exam
General: Comfortable and Poor Appetite
HEENT: Normocephalic
Cardiovascular: S1-S2, Regular Rhythm, Murmur (n) and Peripheral Edema (n)
Respiratory: Clear, Crackles (yes along with inspiratory squeaks) and Non-Labored Respirations
GI: Soft, Non Distended, Non Tender and Normal Bowel Sounds
Neurology: Awake, Alert and AO x 3
Skin: Warm, Dry and Good Color
Labs/Micro/Reports
Lab Data
09/05/23 04:53
09/05/23 04:53
Microbiology
09/02/23 21:48 Urine Urine Culture - Final

Documented by User: Jerome Sheldon MD 09/05/23 12:40
Assessment
-
Patient is a 82-year-old female with past medical history of hypertension who presented to the ED with nausea, vomiting, diarrhea, weakness, and confusion for the past 2 to 3 days. Patient's HCTZ was recently increased from 2-3 times weekly dose to
a daily dose. On presentation patient was hypokalemic and hyponatremic. Potassium was repleted and patient received 50 mL 3% sodium chloride bolus and was admitted to ICU for further evaluations.
ASSESSMENT:
Presentation with weakness and confusion.
Improving.
Presentation with severe hyponatremia.
Improving with free water restriction and IVF
Hypokalemia.
Normalized with KCl.
CONDITIONS PRIOR TO ADMISSION:
Essential Hypertension
Hyperlipidemia
Chronic Back Pain
Osteoporosis
GERD
Anxiety/Depression
Impression/Plan:
Presentation with weakness and confusion.
-Weakness has improved and patient is currently oriented x 3.
-Symptoms most likely due to electrolyte abnormalities given her acute vomiting and diarrhea and recent increase in hydrochlorothiazide dose. This may also be compounded with her history of excess free water intake.
-Sodium checks every 4 hours defer fluid management to nephrology.
-Continue free water restriction.
-Hold offending drugs�HCTZ and amlodipine.
-Continue trazodone.
-Restarted Effexor at 75 ER once daily.
-Continue diazepam.
-Continue monitoring for clinical improvement for the next 24 hours with plans to transfer if she continues to be stable.
Severe hyponatremia.
-Presentation with symptomatic hyponatremia of 106 and elevated urine sodium level of 128 most likely due to increased diuretic use and/polydipsia.
-Continue gentle serum sodium level correction at this rates 6 to 8 mEq/L with goal of 124 today.
-BMP every 4 hours to monitor electrolytes.
-Defer fluid management to nephrology (Free water versus normal saline depending on BMP).
-Continue free water restriction.
-Nephrology following
Hypokalemia.
-Serum potassium level normalized with KCl administration.
-Continue to monitor and replete potassium as needed.
-BMP every 4 hours to monitor electrolytes.
Essential Hypertension.
-Hold HCTZ for now due to hyponatremia.
-Hold amlodipine and reassess at discharge as this could potentially cause peripheral edema.
-Monitor blood pressure.
Dysphagia.
-Patient noted with unspecified dysphagia.
-Checks x-ray unremarkable.-Diet advanced to IDDSI level 6 and thin liquids and tolerating.
-VSE today to assess for physiologic versus anatomic pharyngitis/esophageal abnormalities.
-Interestingly, squeaks on exam suggest chronic airways dz, which can be seen with chronic aspiration.
Anxiety/Depression.
-Hold trazodone and Effexor due to symptomatic hyponatremia.
-Continue diazepam to prevent benzodiazepine withdrawal in a chronic user.
GERD.
-Continue Protonix.
Severe Protein Calorie Malnutrition
-Consult Dietary
DVT PPx: Lovenox
Code Status: DNR confirmed with family at bedside at time of admission

Above reviewed. Patient seen and examined independently by myself. Agree with above plan
Patient continues to improve clinically. Has some mild headaches. Otherwise denies any shortness of breath, chest pain
Sodium level noted
Moving forward
Continue with current plan as above
Aspiration precautions, weight swallowing evaluation
Restart Effexor at half dose
Continue monitoring sodium levels and treat as appropriate, defer to nephrology
Hydrochlorothiazide has been discontinued, blood pressure stable
For transfer out of ICU. We will sign off. Please call with questions
[2023-09-05] MEDS: PROTONIX 40 MG PO (08:58)
[2023-09-05] MEDS: VALIUM 5 MG PO ×2 (08:58→22:04)
[2023-09-05] MEDS: SENOKOT-S 1 TABLET PO (09:22)
--- NOTE | 2023-09-05 11:11 | W.PN.HOSP.TC ---
Today's Communication/Plan
-
nephro recs
repeat lab pending
tx ouf ICU
PT/OT
Assessment / Plan
Assessment / Plan
General: Well Developed and Cachectic
HEENT: Normocephalic, Atraumatic and Moist Mucous Membranes
Respiratory: Clear to Auscultation
Cardiac: Regular Rhythm and S1/S2; Negative Murmur, Rub or Gallop
GI: Soft, Nontender, Nondistended and Normal Bowel Sounds; Negative Organomegaly
Rectal: Deferred by Provider
Musculoskeletal: No Clubbing, No Cyanosis and No Edema
Skin: Negative Rash
Neuro: Awake, No Motor Deficits and Nonfocal/Grossly Intact
Psych: Calm
Severe Symptomatic Hyponatremia
-Patient received 3% NaCl 50mL bolus in ED
-Monitor sodium level
-Continue fluid restriction
-Sodium downtrended to 118. Hypotonic IVF per nephro.
Hypokalemia
-replete and monitor
Essential Hypertension
-Hold HCTZ due to hyponatremia
-Hold amlodipine due to complaints of lower ext edema
-Monitor blood pressure. Blood pressure 110/59
Anxiety/Depression
-Hold trazodone and Effexor as causes of hyponatremia
-restart diazepam
GERD
-Continue Protonix
Hypokalemia/Hypophosthemia
-replete/monitor
Dysphagia
-IDDSI Level 6
-VSe ordered for am
Severe Protein Calorie Malnutrition
Severe weight loss in short period of time
-Consult Dietary likely subacute vs. chronic
-Plan for imaging pending stabilization of acute issues
DVT proph: Lovenox
Code Status: DNR confirmed with family at bedside at time of admission
ok to tx out of ICU
Anticipated Discharge: > 48 hours
Subjective/Interval History
-
Date of Service: September 05, 2023
Sitting in chair drinking coffee
Remains on IV fluids
Objective Data
-
Labs:
Laboratory Results
09/05/23 09/05/23 09/05/23
00:48 04:53 10:40
WBC 4.2 L
Hgb 11.2 L
Hct 31.1 L
Plt Count 373
Sodium 120 L 118 L* Pending
Potassium 3.7 Pending
Chloride 96 L Pending
Carbon Dioxide 18 L Pending
BUN 3 L Pending
Creatinine 0.2 L Pending
Glucose 101 H Pending
Calcium 7.1 L Pending
Vital Signs:
Vital Signs
Temp Pulse Resp BP Pulse Ox
98.4 F 78 15 110/59 100
09/05/23 07:37 09/05/23 09:17 09/05/23 09:17 09/05/23 09:17 09/05/23 09:15
I&O
09/04/23 09/05/23 09/06/23
06:59 06:59 06:59
Intake Total 1420 / 1520 2762.5 / 2762.5
Output Total 1300 / 1300 1300 / 1300
Balance 120 / 220 1462.5 / 1462.5
[2023-09-05 11:21] LABS: Blood Urea Nitrogen 4 mg/dl (7-17); Carbon Dioxide 17 mmol/L (22-30); Chloride 98 mmol/L (98-107); Estimated Creatinine Clearance 42 ml/min; Glucose 103 mg/dl (70-99); Sodium 120 mmol/L (135-145); eGFR > 60.00
[2023-09-05] MEDS: EFFEXOR XR 75 MG PO (11:29)
--- NOTE | 2023-09-05 12:00 | PTCARENOTE ---
Pt downgraded to tele, placed on tele pack after working with pt/ot. Pt then sent for vse as ordered. and daughter at bedside and updated
--- NOTE | 2023-09-05 13:44 | PTOTSP ---
Video Swallow Study
Summary: Patient presents with WFL-mild oral and WFL pharyngeal stage of swallowing. No aspiration occurred. No significant pharyngeal retention noted (i.e., at most mild on base of tongue and valleculae, reduced with subsequent swallows).
Esophageal sweep was unremarkable. Please see patient care note for full details of penetration/aspiration and swallowing physiology. If c/o solid stasis persists, consider GI consult. Continue soft diet given patient is edentulous without her
dentures.
Recommend:
1. IDDSI Level 6 (Soft and Bite Sized), IDDSI Level 0 (Thin Liquids)
2. Medications as best tolerated
3. Strategies: upright to 90 degrees, small SINGLE sips/bites, slow rate, alternate solids and liquids, remain upright for 30 minutes after PO intake
4. No further dysphagia tx warranted at this time. Patient can advance solids as appropriate if/when dentures are present, picking softer foods from the menu.
--- NOTE | 2023-09-05 14:31 | CM ---
CM following re: discharge planning.
Discussed in Rounds, reviewed pt's chart, met with pt. Pt's and pt's daughter at bedside.
ST evaluation noted - skilled services indicated.
PT and OT evaluations noted - home PT/OT recommended.
Both pt and her family are aware, expressed their agreement. A list of VN vendors provided, [facility] preferred. A referral to [facility] made.
Please fax discharge instructions to [facility] at [phone]
D/C plan: home with [facility] and family support. to transport at discharge.
CM will follow with discharger plan updates as hospitalization progresses
--- NOTE | 2023-09-05 14:36 | W.PN.NEPH.PH ---
Today's Communication / Plan
-
- continue to trend sodium checks
- allow for autocorrection of Na currently
- uosm checks pendign
Assessment/Plan
-
IMP:
Severe Symptomatic Hyponatremia
Hypokalemia
No gap met acidosis
Essential Hypertension
Anxiety/Depression
GERD/HH
Severe Protein Calorie Malnutrition
Plan:
A/w gen weakness and confusion sodium noted 106
severe [id number] ADH state with U osmo 392, high U na post 3%
worsened with HCTZ use, and possible low solute with high free water intake
note she is on SNRI - restarted at half dose today
goal of correction 6-8meq/day, high risk of CPM
current sodium at 120. she was 122 yesterday, had mildly overcorrected. stopped hypotonic fluids today
Uosm low at 88 on 09/03
I will plan to hold off any further IVF as I believe she will autocorrect
q6 sodium checks. goal Na of 126 by tomorrow AM.
- If Na is at or below 126 on checks until tomorrow AM, no changes to plan
- If Na >126, please give DDAVP 1mcg and intiate D5W at 80cc/hr
check urine osm now and tomorrow AM
TSH and cortisol were normal
BP stable with holding meds
maintain FR 40 ounces/day
encourage solute intake
mild met acidosis- stable
d/w nursing
-
-
Date of Service: September 05, 2023
CC / HPI / ROS
-
Chief Complaint:
Hyponatremia
History of Present Illness:
sodium was 122 yesterday (overcorrection), down to 118 this AM, slowly up to 120 now
BP stable
UOP non oliguric with purewick
Review of Systems:
no complaints
no cp or sob
Labs
-
Labs:
WBC 4.2 10^3/uL (4.8-10.8) L 09/05/23 04:53
RBC 3.58 10^6/uL (4.20-5.40) L 09/05/23 04:53
Hgb 11.2 g/dL (12.0-16.0) L 09/05/23 04:53
Hct 31.1 % (37.0-47.0) L 09/05/23 04:53
Plt Count 373 10^3/uL (130-400) 09/05/23 04:53
Sodium 120 mmol/L (135-145) L 09/05/23 10:40
Potassium 5.0 mmol/L (3.5-5.1) D 09/05/23 10:40
Chloride 98 mmol/L (98-107) 09/05/23 10:40
Carbon Dioxide 17 mmol/L (22-30) L 09/05/23 10:40
BUN 4 mg/dl (7-17) L 09/05/23 10:40
Creatinine 0.2 mg/dL (0.6-1.0) L 09/05/23 10:40
eGFR > 60.00 09/05/23 10:40
Glucose 103 mg/dl (70-99) H 09/05/23 10:40
Calcium 8.0 mg/dl (8.4-10.2) L 09/05/23 10:40
Phosphorus 1.5 mg/dl (2.5-4.5) L 09/05/23 04:53
Albumin 3.7 g/dl (3.5-5.0) 09/02/23 19:48
Physical Exam
-
Vital Signs:
Vital Signs
Temp Pulse Resp BP Pulse Ox
98.4 F 86 19 116/77 100
09/05/23 11:21 09/05/23 12:00 09/05/23 11:05 09/05/23 11:05 09/05/23 09:15
Cardiovascular:: Regular rate and rhythm
Respiratory:: Bilateral: Coarse
Lung Excursion:: Normal
Abdomen:: Nontender and Soft
Bowel Sounds:: Normal
Extremity Edema:: None: Bilateral:
Abarca Catheter: No
--- NOTE | 2023-09-05 16:19 | VNURNOTE ---
[facility] referral completed in [facility] after review of chart.
[2023-09-05] MEDS: TYLENOL 650 MG PO (17:11)
[2023-09-05] MEDS: LOVENOX 30 MG SC (17:12)
[2023-09-05 18:31] LABS: Blood Urea Nitrogen 7 mg/dl (7-17); Calcium 8.4 mg/dl (8.4-10.2); Carbon Dioxide 18 mmol/L (22-30); Chloride 95 mmol/L (98-107); Estimated Creatinine Clearance 42 ml/min; Glucose 124 mg/dl (70-99); Potassium 4.4 mmol/L (3.5-5.1); Sodium 119 mmol/L (135-145); eGFR > 60.00
--- NOTE | 2023-09-05 21:10 | PTCARENOTE ---
Pt transferred to [facility] from ICU via wheelchair. Pt alert oriented X3, calm and cooperative. States that she is admitted to the hospital because her sodium was low. Pt on NSR on telemonitor. VSS (T=98.1, HR=78, RR=16, EV=346/78, SpO2=97-98% on RA).
Pt oriented to the room, call cisneros within reach. Bed alarm in place for pt's safety. Next BMP due at 0000. Will follow.
[2023-09-05] MEDS: DESYREL 100 MG PO (22:08)
[2023-09-06] VITALS (7 sets, daily range): BP systolic 125–164; BP diastolic 68–82; BMI 17.4
[2023-09-06 01:30] LABS: Blood Urea Nitrogen 6 mg/dl (7-17); Calcium 8.1 mg/dl (8.4-10.2); Carbon Dioxide 20 mmol/L (22-30); Chloride 97 mmol/L (98-107); Estimated Creatinine Clearance 43 ml/min; Glucose 89 mg/dl (70-99); Potassium 4.5 mmol/L (3.5-5.1); Sodium 123 mmol/L (135-145); eGFR > 60.00
[2023-09-06 05:30] LABS: Osmolality Urine 183 mOsm/kg (300-900)
[2023-09-06 07:10] LABS: Blood Urea Nitrogen 4 mg/dl (7-17); Calcium 8.6 mg/dl (8.4-10.2); Carbon Dioxide 23 mmol/L (22-30); Chloride 98 mmol/L (98-107); Estimated Creatinine Clearance 42 ml/min; Glucose 90 mg/dl (70-99); Phosphorus 2.1 mg/dl (2.5-4.5); Potassium 4.4 mmol/L (3.5-5.1); Sodium 127 mmol/L (135-145); eGFR > 60.00
[2023-09-06] MEDS: VALIUM 5 MG PO ×2 (09:39→20:12)
[2023-09-06] MEDS: PROTONIX 40 MG PO (09:39)
[2023-09-06] MEDS: EFFEXOR XR 75 MG PO (09:39)
[2023-09-06] MEDS: FLUSH (NSS) 2 FLUSH IV (09:40)
--- NOTE | 2023-09-06 11:17 | W.PN.HOSP.TC ---
Addendum entered and electronically signed by Kranthi Dyer MD 09/06/23 14:20:
Addendum-Error at end of note- Pt NOT READY FOR DISCHARGE TODAY. Trend bmp.
s/p VSE -cont current diet.
Original Note:
Today's Communication/Plan
-
Nephrology recs
Trend BMP
Assessment / Plan
Assessment / Plan
General: Well Developed and Cachectic
HEENT: Normocephalic, Atraumatic and Moist Mucous Membranes
Respiratory: Clear to Auscultation
Cardiac: Regular Rhythm and S1/S2; Negative Murmur, Rub or Gallop
GI: Soft, Nontender, Nondistended and Normal Bowel Sounds; Negative Organomegaly
Musculoskeletal: No Clubbing, No Cyanosis and No Edema
Skin: Negative Rash
Neuro: Awake, No Motor Deficits and Nonfocal/Grossly Intact
Psych: Calm
Severe Symptomatic Hyponatremia
-Patient received 3% NaCl 50mL bolus in ED
-Monitor sodium level
-Continue fluid restriction
-Sodium at 127. Repeat pending. D5 water has been discontinued per nephrology. Continue to trend.
Hypokalemia
-replete and monitor
Essential Hypertension
-DC HCTZ due to hyponatremia
-Hold amlodipine due to complaints of lower ext edema
-Monitor blood pressure. Blood pressure 125/68
Anxiety/Depression
-Hold trazodone. Effexor has been restarted.
-restart diazepam
GERD
-Continue Protonix
Hypokalemia/Hypophosthemia
-replete/monitor
Dysphagia
-IDDSI Level 6
-VSe ordered for am
Severe Protein Calorie Malnutrition
Severe weight loss in short period of time
-Consult Dietary likely subacute vs. chronic
-Per patient she underwent CT chest abdomen pelvis per primary doctor 3 years ago and no imaging workup was negative. Currently patient wants to think about and not too keen to repeat imaging. She understand possible malignancy/cancer could be
underlying however would like to think if she wants to undergo further imaging.
DVT proph: Lovenox
PT/OT-Home health once ready
Code Status: DNR confirmed with family at bedside at time of admission
Anticipated Discharge: Today
Subjective/Interval History
-
Date of Service: September 06, 2023
Transfer out of ICU
States she is tolerating some diet
States she underwent CT chest abdomen pelvis approximately 2 years ago by primary doctor and was negative for malignancy or any lesions. At this point she wants to think about further imaging.
Objective Data
-
Labs:
Laboratory Results
09/06/23 09/06/23 09/06/23
00:52 06:22 12:00
Sodium 123 L 127 L Pending
Potassium 4.5 4.4 Pending
Chloride 97 L 98 Pending
Carbon Dioxide 20 L 23 Pending
BUN 6 L 4 L Pending
Creatinine 0.3 L 0.3 L Pending
Glucose 89 90 Pending
Calcium 8.1 L 8.6 Pending
Vital Signs:
Vital Signs
Temp Pulse Resp BP Pulse Ox
97.8 F 91 18 125/68 98
09/06/23 07:33 09/06/23 09:41 09/06/23 07:33 09/06/23 09:41 09/06/23 07:33
I&O
09/05/23 09/06/23 09/07/23
06:59 06:59 06:59
Intake Total 2762.5 / 2762.5
Output Total 1300 / 1300 175 / 175
Balance 1462.5 / 1462.5 -175 / -175
[2023-09-06 12:42] LABS: Blood Urea Nitrogen 5 mg/dl (7-17); Carbon Dioxide 22 mmol/L (22-30); Chloride 99 mmol/L (98-107); Estimated Creatinine Clearance 42 ml/min; Glucose 83 mg/dl (70-99); Potassium 4.5 mmol/L (3.5-5.1); Sodium 127 mmol/L (135-145); eGFR > 60.00
--- NOTE | 2023-09-06 14:08 | W.PN.NEPH.PH ---
Today's Communication / Plan
-
- repeat BMP later this evening
- if >130 tomorrow, likely will sign off
Assessment/Plan
-
IMP:
Severe Symptomatic Hyponatremia
Hypokalemia
No gap met acidosis
Essential Hypertension
Anxiety/Depression
GERD/HH
Severe Protein Calorie Malnutrition
Plan:
A/w gen weakness and confusion sodium noted 106
severe [id number] ADH state with U osmo 392, high U na post 3%
worsened with HCTZ use, and possible low solute with high free water intake
note she is on SNRI - restarted at half dose today
goal of correction 6-8meq/day, high risk of CPM
current sodium at 127 which is appropriate. Plan to likely be at or around 130 by emigdio. afterwards, okay to let the patient autocorrect.
Uosm low at 88 on 09/03, now at 183
TSH and cortisol were normal
BP stable with holding meds
maintain FR 40 ounces/day
encourage solute intake
mild met acidosis- stable
d/w nursing
-
-
Date of Service: September 06, 2023
CC / HPI / ROS
-
Chief Complaint:
Hyponatremia
History of Present Illness:
120 --> 127, appropriate correction
BP stable
UOP non oliguric with purewick
Review of Systems:
no complaints
no cp or sob
Labs
-
Labs:
WBC 4.2 10^3/uL (4.8-10.8) L 09/05/23 04:53
RBC 3.58 10^6/uL (4.20-5.40) L 09/05/23 04:53
Hgb 11.2 g/dL (12.0-16.0) L 04/12/24 04:53
Hct 31.1 % (37.0-47.0) L 09/05/23 04:53
Plt Count 373 10^3/uL (130-400) 09/05/23 04:53
Sodium 127 mmol/L (135-145) L 09/06/23 12:11
Potassium 4.5 mmol/L (3.5-5.1) 09/06/23 12:11
Chloride 99 mmol/L (98-107) 09/06/23 12:11
Carbon Dioxide 22 mmol/L (22-30) 09/06/23 12:11
BUN 5 mg/dl (7-17) L 09/06/23 12:11
Creatinine 0.3 mg/dL (0.6-1.0) L 09/06/23 12:11
eGFR > 60.00 09/06/23 12:11
Glucose 83 mg/dl (70-99) 09/06/23 12:11
Calcium 9.0 mg/dl (8.4-10.2) 09/06/23 12:11
Phosphorus 2.1 mg/dl (2.5-4.5) L 09/06/23 06:22
Albumin 3.7 g/dl (3.5-5.0) 09/02/23 19:48
Physical Exam
-
Vital Signs:
Vital Signs
Temp Pulse Resp BP Pulse Ox
97.5 F 90 16 126/80 96
09/06/23 11:23 09/06/23 11:23 09/06/23 11:23 09/06/23 11:23 09/06/23 11:23
Cardiovascular:: Regular rate and rhythm
Respiratory:: Bilateral: CTA
Lung Excursion:: Normal
Abdomen:: Nontender and Soft
Bowel Sounds:: Normal
Extremity Edema:: None: Bilateral:
Abarca Catheter: No
--- NOTE | 2023-09-06 15:17 | CM ---
Patient seen at bedside, IMM provided. Patient to review with , referral to [facility] for follow up at discharge. CM will continue to follow for discharge planning needs.
Plan; home with [facility]
[2023-09-06] MEDS: LOVENOX 30 MG SC (18:16)
[2023-09-07 03:55] VITALS: BP 134/74
[2023-09-07 06:00] VITALS: BMI 17.2
[2023-09-07 07:26] LABS: Blood Urea Nitrogen 7 mg/dl (7-17); Calcium 8.5 mg/dl (8.4-10.2); Carbon Dioxide 26 mmol/L (22-30); Chloride 100 mmol/L (98-107); Estimated Creatinine Clearance 41 ml/min; Glucose 87 mg/dl (70-99); Potassium 4.5 mmol/L (3.5-5.1); Sodium 127 mmol/L (135-145); eGFR > 60.00
[2023-09-07 07:31] VITALS: BP 135/74
[2023-09-07] MEDS: EFFEXOR XR 75 MG PO (09:42)
[2023-09-07] MEDS: PROTONIX 40 MG PO (09:43)
[2023-09-07] MEDS: VALIUM 5 MG PO ×2 (09:43→20:45)
[2023-09-07] MEDS: FLUSH (NSS) 1 FLUSH IV (09:43)
--- NOTE | 2023-09-07 09:53 | CM ---
Patient seen at bedside, patient yet to review IMM with , pending discharge referral to [facility] for follow up. CM will continue to follow for discharge planning needs.
Plan; home with [facility]
--- NOTE | 2023-09-07 10:53 | W.PN.HOSP.TC ---
Today's Communication/Plan
-
nephro recs
sodium downtrended
Assessment / Plan
Assessment / Plan
General: Well Developed and Cachectic
HEENT: Normocephalic, Atraumatic and Moist Mucous Membranes
Respiratory: Clear to Auscultation
Cardiac: Regular Rhythm and S1/S2; Negative Murmur, Rub or Gallop
GI: Soft, Nontender, Nondistended and Normal Bowel Sounds; Negative Organomegaly
Musculoskeletal: No Clubbing, No Cyanosis and No Edema
Skin: Negative Rash
Neuro: Awake, No Motor Deficits and Nonfocal/Grossly Intact
Psych: Calm
Severe Symptomatic Hyponatremia
-Patient received 3% NaCl 50mL bolus in ED
-Monitor sodium level
-Continue fluid restriction
-TSH/cortisol wnl
-Sodium at 127. D5 water has been discontinued per nephrology. Continue to trend.
-Nephro recs
Hypokalemia/Hypophos
-replete and monitor
Essential Hypertension
-DC HCTZ due to hyponatremia
-Hold amlodipine due to complaints of lower ext edema
-Monitor blood pressure. Blood pressure 125/68
Anxiety/Depression
-Hold trazodone. Effexor has been restarted.
-restart diazepam
GERD
-Continue Protonix
Hypokalemia/Hypophosthemia
-replete/monitor
Dysphagia
-IDDSI Level 6
-VSe ordered for am
Severe Protein Calorie Malnutrition- chronic illness
-Per patient she underwent CT chest abdomen pelvis per primary doctor 3 years ago and imaging workup was negative. Patient continues to refuse wallace- Imaging to assess for malignancy. She understand possible malignancy/cancer could be underlying
however, currently does not want imaging.
DVT proph: Lovenox
PT/OT-Home health once ready
Code Status: DNR confirmed with family at bedside at time of admission
Anticipated Discharge: Within 24 hours
Subjective/Interval History
-
Date of Service: September 07, 2023
States trying to increase her diet
Objective Data
-
Labs:
Laboratory Results
09/07/23
06:22
Sodium 127 L
Potassium 4.5
Chloride 100
Carbon Dioxide 26
BUN 7
Creatinine 0.4 L
Glucose 87
Calcium 8.5
Vital Signs:
Vital Signs
Temp Pulse Resp BP Pulse Ox
98.1 F 74 16 135/74 95
09/07/23 07:31 09/07/23 07:31 09/07/23 07:31 09/07/23 07:31 09/07/23 07:31
I&O
09/06/23 09/07/23 09/08/23
06:59 06:59 06:59
Intake Total 450 / 450
Output Total 375 / 375
Balance 75 / 75
[2023-09-07 11:07] VITALS: BP 153/83
[2023-09-07 11:57] LABS: Magnesium 1.9 mg/dl (1.6-2.3); Phosphorus 3.2 mg/dl (2.5-4.5)
--- NOTE | 2023-09-07 12:54 | W.PN.NEPH.PH ---
Today's Communication / Plan
-
- salt tabs
Assessment/Plan
-
IMP:
Severe Symptomatic Hyponatremia
Hypokalemia
No gap met acidosis
Essential Hypertension
Anxiety/Depression
GERD/HH
Severe Protein Calorie Malnutrition
Plan:
A/w gen weakness and confusion sodium noted 106
severe [id number] ADH state with U osmo 392, high U na post 3%
worsened with HCTZ use, and possible low solute with high free water intake
note she is on SNRI - restarted at half dose today
goal of correction 6-8meq/day, high risk of CPM
current sodium at 127 which is appropriate. Patient did not autocorrect any further. She likely lives at around this Na level
Will initiate salt tabs to assist. i believe her low osmolar intake is a big problem. encourage solute intake
TSH and cortisol were normal
BP stable with holding meds
maintain FR 40 ounces/day
mild met acidosis- stable
d/w patient
Patient would like to go home. If Na >126, okay from nephrology perspective. She will need close follow up labs.
-
-
Date of Service: September 07, 2023
CC / HPI / ROS
-
Chief Complaint:
Hyponatremia
History of Present Illness:
120 --> 127, appropriate correction
BP stable
UOP non oliguric with purewick
Review of Systems:
no complaints
no cp or sob
Labs
-
Labs:
WBC 4.2 10^3/uL (4.8-10.8) L 09/05/23 04:53
RBC 3.58 10^6/uL (4.20-5.40) L 09/05/23 04:53
Hgb 11.2 g/dL (12.0-16.0) L 09/05/23 04:53
Hct 31.1 % (37.0-47.0) L 09/05/23 04:53
Plt Count 373 10^3/uL (130-400) 09/05/23 04:53
Sodium 127 mmol/L (135-145) L 09/07/23 06:22
Potassium 4.5 mmol/L (3.5-5.1) 09/07/23 06:22
Chloride 100 mmol/L (98-107) 09/07/23 06:22
Carbon Dioxide 26 mmol/L (22-30) 09/07/23 06:22
BUN 7 mg/dl (7-17) 09/07/23 06:22
Creatinine 0.4 mg/dL (0.6-1.0) L 09/07/23 06:22
eGFR > 60.00 09/07/23 06:22
Glucose 87 mg/dl (70-99) 09/07/23 06:22
Calcium 8.5 mg/dl (8.4-10.2) 09/07/23 06:22
Phosphorus 3.2 mg/dl (2.5-4.5) 09/07/23 06:22
Albumin 3.7 g/dl (3.5-5.0) 09/02/23 19:48
Physical Exam
-
Vital Signs:
Vital Signs
Temp Pulse Resp BP Pulse Ox
98.2 F 93 16 153/83 97
09/07/23 11:07 09/07/23 11:07 09/07/23 11:07 09/07/23 11:07 09/07/23 11:07
Cardiovascular:: Regular rate and rhythm
Respiratory:: Bilateral: CTA
Lung Excursion:: Normal
Abdomen:: Nontender and Soft
Bowel Sounds:: Normal
Extremity Edema:: None: Bilateral:
Abarca Catheter: No
[2023-09-07] MEDS: SODIUM CHLORIDE 1 GRAM PO (13:46)
[2023-09-07 15:20] VITALS: BP 128/81
[2023-09-07 15:46] VITALS: BP 158/67; PULSE 90; O2SAT 99
[2023-09-07] MEDS: LOVENOX 30 MG SC (17:54)
[2023-09-07 23:11] VITALS: BP 143/72
[2023-09-08 06:00] VITALS: BMI 17.4
[2023-09-08 06:14] LABS: Blood Urea Nitrogen 11 mg/dl (7-17); Carbon Dioxide 25 mmol/L (22-30); Chloride 95 mmol/L (98-107); Estimated Creatinine Clearance 41 ml/min; Glucose 90 mg/dl (70-99); Potassium 4.3 mmol/L (3.5-5.1); Sodium 128 mmol/L (135-145); eGFR > 60.00
[2023-09-08 07:35] VITALS: BP 156/87
[2023-09-08] MEDS: EFFEXOR XR 75 MG PO (09:21)
[2023-09-08] MEDS: FLUSH (NSS) 1 FLUSH IV (09:21)
[2023-09-08] MEDS: PROTONIX 40 MG PO (09:21)
[2023-09-08] MEDS: VALIUM 5 MG PO (09:21)
--- NOTE | 2023-09-08 10:39 | W.PN.HOSP.TC ---
Today's Communication/Plan
-
ok for DC today
Assessment / Plan
Assessment / Plan
General: Well Developed and Cachectic
HEENT: Normocephalic, Atraumatic and Moist Mucous Membranes
Respiratory: Clear to Auscultation
Cardiac: Regular Rhythm and S1/S2; Negative Murmur, Rub or Gallop
GI: Soft, Nontender, Nondistended and Normal Bowel Sounds; Negative Organomegaly
Musculoskeletal: No Clubbing, No Cyanosis and No Edema
Skin: Negative Rash
Neuro: Awake, No Motor Deficits and Nonfocal/Grossly Intact
Psych: Calm
Severe Symptomatic Hyponatremia
-Patient received 3% NaCl 50mL bolus in ED
-Na had mild overcorrection corrected with D5, 128 this AM
-discussed with renal, OK for DC on 500mg BID
-will get Na in 3-4 days
-Continue fluid restriction on DC
-TSH/cortisol wnl
-stop HCTZ on DC
Hypokalemia/Hypophos
-replete and monitor
Essential Hypertension
-DC HCTZ due to hyponatremia
-Hold amlodipine due to complaints of lower ext edema
-Monitor blood pressure. Blood pressure 125/68
Anxiety/Depression
-Hold trazodone. Effexor has been restarted at 1/2 dose
-restart diazepam
GERD
-Continue Protonix
Hypokalemia/Hypophosthemia
-replete/monitor
Dysphagia
-IDDSI Level 6
-VSe ordered for am
Severe Protein Calorie Malnutrition- chronic illness
-Per patient she underwent CT chest abdomen pelvis per primary doctor 3 years ago and imaging workup was negative. Patient continues to refuse wallace- Imaging to assess for malignancy. She understand possible malignancy/cancer could be underlying
however, currently does not want imaging.
DVT proph: Lovenox
PT/OT-Home health once ready
Code Status: DNR confirmed with family at bedside at time of admission
Anticipated Discharge: Today
Subjective/Interval History
-
Date of Service: September 08, 2023
feeling well
hoping to go home
Objective Data
-
Labs:
Laboratory Results
09/08/23
05:25
Sodium 128 L
Potassium 4.3
Chloride 95 L
Carbon Dioxide 25
BUN 11
Creatinine 0.4 L
Glucose 90
Calcium 9.0
Vital Signs:
Vital Signs
Temp Pulse Resp BP Pulse Ox
98.4 F 85 18 156/87 99
09/08/23 07:35 09/08/23 07:35 09/08/23 07:35 09/08/23 07:35 09/08/23 09:17
I&O
09/07/23 09/08/23 09/09/23
06:59 06:59 06:59
Intake Total 450 / 450 600 / 600
Output Total 375 / 375
Balance 75 / 75 600 / 600
Review of Systems
-
History Source: Patient
All other systems: Reviewed and negative
Physical Exam
-
General: No Apparent Distress and Cachectic
HEENT: Normocephalic, Atraumatic and Moist Mucous Membranes
Respiratory: Clear to Auscultation
Cardiac: Regular Rhythm and S1/S2; Negative Murmur, Rub or Gallop
GI: Soft, Nontender, Nondistended and Normal Bowel Sounds; Negative Organomegaly
Rectal: Deferred by Provider
Musculoskeletal: No Clubbing, No Cyanosis and No Edema
Skin: Negative Rash
Neuro: Awake, No Motor Deficits and Nonfocal/Grossly Intact
Psych: Calm
Data Reviewed
-
Diagnostic Radiology: Report Reviewed by me
Labs: Labs Reviewed by me
--- NOTE | 2023-09-08 10:52 | W.DS.TRANS ---
DC Summary - Email Marketer
-
Discharge Instructions:
Discharge Diagnosis/Procedures severe hyponatremia
Additional Diets RESTRICT FLUIDS TO 40 OZ PER DAY
IDDSI Level 6 (Soft and Bite Sized), IDDSI Level
0 (Thin Liquids)
2. Medications as best tolerated
3. Strategies: upright to 90 degrees, small
SINGLE sips/bites, slow rate, alternate solids
and liquids, remain upright for 30 minutes after
PO intake
You can advance solids as appropriate when
dentures are present, picking softer foods from
the menu.
Activity As tolerated
Driving Restrictions As prior to admission
Bathing Restrictions None
Blood Work BMP in 3-4 days; to be collected by VN and
directed to PCP
Other Services PT,VN,OT
Instructions:
Stand-Alone Forms:
Changes to Home Medications: Yes
Discharge Medications:
DC Medications w/original date entered in [facility]
amlodipine 5 mg tablet 5 mg PO DAILY Blood Pressure 02/10/20
atorvastatin 20 mg tablet 20 mg PO DAILY High Cholesterol 02/10/20
hydrocodone 5 mg-acetaminophen 325 mg tablet 1 tab PO Q8HPRN PRN mild pain 02/10/20
trazodone 100 mg tablet 100 mg PO HS Mental Health/Anxiety 02/10/20
acetaminophen 325 mg tablet 325 mg PO DAILY Pain 09/02/23
cholecalciferol (vitamin D3) 1,250 mcg (50,000 unit) capsule 1,250 mcg PO USEASDIRECTD Supplement 09/02/23
mometasone 0.1 % topical cream 1 applic topical DAILY Skin Issues 09/02/23
pantoprazole 40 mg tablet,delayed release 40 mg PO DAILY Gastrointestinal Issue 09/02/23
senna leaf extract 8.7 mg chewable tablet (Senokot) 8.7 mg PO DAILY Constipation 09/02/23
diazepam 5 mg tablet 5 mg PO BID Mental Health/Anxiety #0 tabs 09/08/23
lactulose 10 gram/15 mL oral solution 15 ml PO DAILY PRN Gastrointestinal Issue #0 mL 09/08/23
sodium chloride 1,000 mg soluble tablet 500 mg (1/2 x 1,000 mg) PO BID #30 tabs 09/08/23
venlafaxine 75 mg capsule,extended release 24 hr 75 mg PO DAILY #30 caps 09/08/23
Home Medication Changes
STOP HYDROCHLOROTHIAZIDE. THIS MEDICATION LOWERS SODIUM LEVELS.
Decrease Diazepam to twice a day from 3x/day (tolerated this decrease in the hospital).
Decrease Venlafaxine from 150mg daily to 75mg daily (new script sent). This medication can affect sodium levels.
You are started on salt tabs (500mg or 1/2 tablet) twice a day. Your labs will be repeated in 3-4 days and follow further instructions from outpatient physician.
Pending Results: No
[2023-09-08] MEDS: SODIUM CHLORIDE 0.5 GRAM PO (12:14)
--- NOTE | 2023-09-08 12:50 | CM ---
CM met with patient bedside, patient reports her daughter Tisha will provide her transportation home. CM will call Tisha to update on discharge. [facility] reviewed with patient, patient not comfortable signing, placed in patients chart. CM spoke
with Tisha, per Tisha, patient is no longer living at [facility], is residing with her at [address] [place] [address]. CM will update [facility], Tisha requests [facility] if [facility] is unable to travel. Tisha reports she works from
home and will try to get there around 2:30 p.m., otherwise will be there around 4:30 p.m. CM will continue to follow for discharge planning needs.
Plan; home with [facility] pending accepting, daughter to provide transportation home.
--- NOTE | 2023-09-08 13:16 | VNURNOTE ---
Home Health Liaison met with patient at 1120 to discuss [facility] nurse/therapy, visits, schedule and homebound status. Patient is agreeable and understands that visits at home will be 2-3 x per week to assess and teach medical management.
[facility] brochure provided with contact information. Patient is aware that [facility] will contact her for start of care in 1-2 days after discharge from .
[facility] referral completed previously and accepted in [facility].
--- NOTE | 2023-09-08 13:58 | W.DCSUMMARY ---
Discharge Summary
Discharge Data
Date of Admission: 09/02/23
Date of Discharge: 09/08/23
-
Pending Results: No
Hospital Course
Discharging Physician : Dr. Camila Duran
Disposition : Home with Home Health
Primary care physician : Dr. Agustina Landis
Principal Discharge diagnosis : Severe hyponatremia
Hospital Course :
Ms. Rebecca Mills is a 82 yo woman with hx HTN, anxiety/depression who presents to the ER with vomiting, weakness and confusion. Triage vitals stable. Labs notable for Na 106 and K+ 2.4. She was admitted to the ICU with Nephrology and
Supervisor [employer] consulting. She received 3% saline. Patient's HOME CARE MUSIC THERAPIST HCTZ and SSRI were held. Patient required brief gentle hypotonic fluids to avoid overcorrection. Her Na gradually increased. She was continued on fluid restriction, salt tabs
recommended by renal and Na on day of discharge is 128.
TSH and cortisol were normal.
Med changes include:
STOP HYDROCHLOROTHIAZIDE. THIS MEDICATION LOWERS SODIUM LEVELS.
Decrease Diazepam to twice a day from 3x/day (tolerated this decrease in the hospital).
Decrease Venlafaxine from 150mg daily to 75mg daily (new script sent). This medication can affect sodium levels.
You are started on salt tabs (500mg or 1/2 tablet) twice a day. Your labs will be repeated in 3-4 days and follow further instructions from outpatient physician.
She is also told to Restrict fluids to 40 oz per day
Patient was notified to have dysphagia s/p VSE and resumed on modified diet. Wtih cachexia and weight loss, CT chest/abdomen/pelvis recommended but she refused, understanding concern for possible underlying malignancy.
She will get a repeat BMP in 3-4 days and follow up closely with her PCP.
Time spent on discharge was 40 minutes.
Important imaging findings :
Procedure findings :
Discharge Plan
-
Patient Disposition: Home with Home Care
Discharge Diagnosis/Procedures: severe hyponatremia
Additional Diets: RESTRICT FLUIDS TO 40 OZ PER DAY
IDDSI Level 6 (Soft and Bite Sized), IDDSI Level 0 (Thin Liquids)
2. Medications as best tolerated
3. Strategies: upright to 90 degrees, small SINGLE sips/bites, slow rate, alternate solids and liquids, remain upright for 30 minutes after PO intake
You can advance solids as appropriate when dentures are present, picking softer foods from the menu.
Activity: As tolerated
Driving Restrictions: As prior to admission
Bathing Restrictions: None
Blood Work: BMP in 3-4 days; to be collected by VN and directed to PCP
Other Services: VN, PT and OT
Referrals:
Agustina Landis, DO [Family Provider] - in less than 1 week
Additional Discharge Medication Instructions: STOP HYDROCHLOROTHIAZIDE. THIS MEDICATION LOWERS SODIUM LEVELS.
Decrease Diazepam to twice a day from 3x/day (tolerated this decrease in the hospital).
Decrease Venlafaxine from 150mg daily to 75mg daily (new script sent). This medication can affect sodium levels.
You are started on salt tabs (500mg or 1/2 tablet) twice a day. Your labs will be repeated in 3-4 days and follow further instructions from outpatient physician.
Restrict fluids to 40 oz per day
Prescriptions:
New
venlafaxine 75 mg Capsule,Extended Release 24hr
75 mg PO DAILY Qty: 30 0RF
sodium chloride 1,000 mg Tablet,Soluble
500 mg PO BID Qty: 30 0RF
Rx Instructions:
Take 1/2 tablet (500mg) twice a day
Continued
atorvastatin 20 MG tablet
20 mg PO DAILY
amlodipine 5 MG tablet
5 mg PO DAILY
trazodone 100 MG tablet
100 mg PO HS
hydrocodone-acetaminophen 1 TABLET tablet
1 tab PO Q8HPRN PRN (Reason: mild pain)
Patient Comments:
09/02/2023: last filled 06/09/23, 90 tabs for 30 days from [id number]
acetaminophen 325 mg Tablet
325 mg PO DAILY
pantoprazole 40 mg Tablet,Delayed Release (Dr/Ec)
40 mg PO DAILY
mometasone 0.1 % cream
1 applic TOPICAL DAILY
Patient Comments:
09/02/2023: apply to rash
cholecalciferol (vitamin D3) 1,250 mcg (50,000 unit) Capsule
1,250 mcg PO USEASDIRECTD
Patient Comments:
09/02/2023: Taken twice a month
Senokot 8.7 mg Tablet,Chewable
8.7 mg PO DAILY
Changed
lactulose 10 gram/15 mL solution
15 ml PO DAILY PRN (Reason: Gastrointestinal Issue) Qty: 0 0RF
diazepam 5 MG tablet
5 mg PO BID Qty: 0 0RF
Patient Comments:
09/02/2023: last filled 08/09/23, 90 tabs for 30 days from [id number]
Discontinued
venlafaxine [Effexor XR] 150 MG capsule,extended release 24hr
150 mg PO DAILY
hydrochlorothiazide 25 mg Tablet
25 mg PO DAILY
Discharge Orders:
Discharge Patient (As Directed); Ordered 09/08/23
Ordered By: Camila Duran
Discharge Date and Time
Print Language: TAMAZIGHT
--- NOTE | 2023-09-08 14:12 | PTCARENOTE ---
Rn flow print inspector- called to daughter to update patients pharmacy. Patient uses [facility].
[2023-09-08 14:15] VITALS: BP 150/98
== END 2023-09-08 15:56 | disposition home health service (06) | DRG 640 ==
LOC: 4 EAST ACU 22:25
PROVIDERS: Hospitalist; Nurse Practitioner Family; Nurse Practitioner Primary Care; Physician Assistant; Physician Assistant Medical; Student in an Organized Health Care Education/Training Program; ADMITTING PHYSICIAN Hospitalist; ATTENDING PHYSICIAN Student in an Organized Health Care Education/Training Program; CONSULT PHYSICIAN Internal Medicine Critical Care Medicine; EMERGENCY PHYSICIAN Emergency Medicine; FAMILY PHYSICIAN Family Medicine; OTHER PHYSICIAN Internal Medicine
DX: E87.1 Hypo-osmolality and hyponatremia (principal); E43 Unspecified severe protein-calorie malnutrition; Z68.1 Body mass index [BMI] 19.9 or less, adult; R64 Cachexia; Z87.891 Personal history of nicotine dependence; Z66 Do not resuscitate; E87.6 Hypokalemia; I10 Essential (primary) hypertension; F41.9 Anxiety disorder, unspecified; K21.9 Gastro-esophageal reflux disease without esophagitis; Z11.52 Encounter for screening for COVID-19
CPT/HCPCS: 70450; 71045; 74230; 80048; 80053; 81003; 81015; 82533; 83735; 83930; 83935; 84100; 84295; 84300; 84443; 85025; 85027; 85610; 85730; 87086; 87811; 92610; 92611; 93005; 96361; 96365; 96366; 97163; 97166; 97530; 99291; J2597

== ENCOUNTER → 2023-09-14 11:03 | Outpatient (REF) | payer MEDICARE, OTHER, SELFPAY ==
[2023-09-14 13:22] LABS: Blood Urea Nitrogen 10 mg/dl (7-17); Calcium 8.8 mg/dl (8.4-10.2); Carbon Dioxide 25 mmol/L (22-30); Chloride 106 mmol/L (98-107); Glucose 114 mg/dl (70-99); Potassium 4.2 mmol/L (3.5-5.1); Sodium 133 mmol/L (135-145); Urine Albumin 1+ (Neg - Trace); Urine Bilirubin Negative (Negative); Urine Character Slightly Cloudy (Clear); Urine Color Yellow; Urine Glucose Negative (Negative); Urine Ketone Negative (Negative); Urine Leukocyte 2+ (Negative); Urine Nitrite Negative (Negative); Urine Occult Blood 1+ (Negative); Urine Specific Gravity 1.015 (<1.030); Urine Urobilinogen Negative (Neg - 1+); eGFR > 60.00
[2023-09-14 14:12] LABS: Urine Amorphous Seen; Urine Squamous Cell >30 /LPF (Few)
[2023-09-14 14:18] LABS: Urine Red Blood Cell 0-2 /HPF (0-2); Urine White Cell 40-50 /HPF (0-5)
[2023-09-14 14:19] LABS: Urine Bacteria Many (Negative)
== END ==
LOC: OLAB 11:03
PROVIDERS: ATTENDING PHYSICIAN Family Medicine; FAMILY PHYSICIAN Internal Medicine
DX: R30.0 Dysuria (principal)
CPT/HCPCS: 80048; 81003; 81015; 87077; 87086; 87186

== ENCOUNTER → 2025-04-06 12:37 | Outpatient (REF) | payer MEDICARE, OTHER, SELFPAY | LOC: RAD 12:37 | PROVIDERS: ATTENDING PHYSICIAN Nurse Practitioner Family; FAMILY PHYSICIAN Internal Medicine | DX: M41.9 Scoliosis, unspecified (principal); M54.42 Lumbago with sciatica, left side | CPT/HCPCS: 72110 ==